=== PATIENT | male | born 1950 | race Caucasian/White ===

== ENCOUNTER 2018-10-07 14:53 | Outpatient (CLI) | payer MEDICARE, OTHER ==
--- NOTE | 2018-10-07 18:03 | MRI ---
MRI OF LUMBAR SPINE 10/07/18 COMPARISON: None. HISTORY: Neurogenic claudication, chronic low back pain radiating down bilateral lower extremities. TECHNIQUE: Multiplanar and multisequence MR imaging of the lumbar spine is obtained without contrast. FINDINGS: The sagittal STIR imaging demonstrates no focal area of osseous marrow edema. There is no significant anterolisthesis or retrolisthesis seen within the lumbar spine. Assuming five lumbar type vertebral bodies, the conus medullaris terminates at T12-L1. T12-L1: There is disc space narrowing and mild bilateral facet hypertrophy with no significant centra l canal or neural foraminal stenosis. L1-2: Mild bilateral facet hypertrophy. There is disc space narrowing and disc desiccation with no si gnificant central canal or neural foraminal stenosis. L2-3: Disc space narrowing, degenerative end plate change and mild disc bulge. Bilateral facet hypert rophy, left greater than right. There is a left foraminal disc protrusion. There is mild left neural foraminal stenosis. No significant central canal or right neural foraminal stenosis. L3-4: There is disc space narrowing and disc desiccation with anterior osteophyte formation. There is bilateral facet hypertrophy. There is severe central canal stenosis on the basis of disc bulge and b ilateral prominent facet hypertrophy. There is a central/right paracentral disc extrusion with inferi or migration. Extruded disc measures 9 mm craniocaudal dimension and 7 mm AP dimension with prominent right lateral recess stenosis. L4-5: Disc space narrowing, degenerative end plate change, anterior osteophyte formation, disc bulge, and right paracentral disc herniation present. The patient appears status post right hemilaminectomy . Moderate central canal stenosis noted with severe right lateral recess stenosis. Moderate right and mild left neural foraminal stenosis. L5-S1: Disc space narrowing, disc desiccation and disc bulge. Bilateral facet hypertrophy, left great er than right. Severe left and mild right neural foraminal stenosis. Moderate left lateral recess peter nosis noted with small left paracentral disc protrusion. Imaged retroperitoneal structures demonstrate no acute findings. There is a round structure in the ri ght lower quadrant which may represent a renal transplant or a pelvic kidney. No kidney is seen in th e right renal fossa. The left kidney is atrophic. IMPRESSION: Prominent multilevel degenerative change noted within the lumbar spine, particularly at the L3-4 and L4-5 levels as detailed above. POS: [facility]
== END 2018-10-07 14:54 | disposition home or self-care (01) ==
LOC: SCSMRI 14:53
PROVIDERS: ATTEND Internal Medicine
DX: M48.062 Spinal stenosis, lumbar region with neurogenic claudication (principal); M47.816 Spondylosis without myelopathy or radiculopathy, lumbar region
CPT/HCPCS: 72148

== ENCOUNTER 2018-10-30 08:10 | Day surgery (SDC) | payer MEDICARE, OTHER ==
[2018-10-29 08:47] VITALS: BMI 29.7
--- NOTE | 2018-10-30 00:16 | HP ---
HISTORY OF PRESENT ILLNESS: Mr. Manrique is a very pleasant 68-year-old man with a chronic history of back trouble that had an initial surgery in 1980 for a similar problem, but over the last 6 to 8 months, he has started to experience profound neurogenic claudication symptoms that are altering his day-to-day life. He has had injections in the distant past and recently tried physical therapy without much success. He has an MRI from [place] that reveals profound stenosis at L3-L4 secondary to spondylosis as well as the disk protrusion which would well explain his symptoms. PAST MEDICAL HISTORY: Significant for hypercholesterolemia, renal disease, history of cancer, hypertension, coronary artery disease, and gout. PAST SURGICAL HISTORY: Laminectomy, unspecified neck surgery, cholecystectomy, and kidney transplant. ALLERGIES: TO PENICILLIN. PHYSICAL EXAMINATION: GENERAL: The patient is alert and oriented x3. MUSCULOSKELETAL: Gait is significantly antalgic. Lower extremities motor exam is normal. ASSESSMENT: Lumbar stenosis with neurogenic claudication. PLAN: Dr. Hayes met with the patient, reviewed imaging, and advocated for an L3-L4 decompression. He explained the risks, benefits, and alternatives to the procedure. The patient expressed understanding and elected to move forward with surgery as discussed. Job ID: [id number]
[~2018-10-30 08:10] MED LIST: Dexamethasone 20 MG/5 ML VIAL ONE; Glycopyrrolate 0.2 MG/ML 5 ML SYRINGE ONE; Lidocaine 1% PF 5 ML VIAL ONE; Ondansetron PF 4 MG/2 ML Vial ONE; PROPOFOL 200 MG/20 ML VIAL ONE; ePHEDrine/0.9% NaCl/PF SYRINGE 50 mg/10 ml ONE
[2018-10-30 09:51] LABS: #Eosinphils 0.1 thou/uL (0.0-0.7); #Lymphocytes 0.9 thou/uL (1.20-3.40); #Monocytes 0.7 thou/uL (0.11-0.59); #Neutrophils 7.9 thou/uL (1.40-6.50); %Basophils 0.3 % (0.0-1.0); %Eosinophils 1.1 % (0.0-10.0); %Lymphocytes 9.7 % (21.0-51.0); %Neutrophils 81.9 % (42.0-75.0); Hemoglobin 13.5 g/dL (14.0-18.0); Mean Corpuscular HGB CONC 33.1 g/dL (32.0-36.0); Mean Corpuscular Hemoglobin 31.1 pg (27.0-31.0); Mean Corpuscular Volume 93.9 fL (78.0-98.0); Mean Platelet Volume 7.9 fL (7.4-10.4); RBC Distribution Width 11.9 % (11.5-14.5); Red Blood Cell (RBC) Count 4.35 mill/uL (4.70-6.10); White Blood Cell (WBC) Count 9.6 thou/uL (4.8-10.8)
[2018-10-30 09:56] LABS: Platelet Count 122 thou/uL (130-400)
[2018-10-30] MEDS ORDERED: CEFAZOLIN 2 GM/50 ML BAG ONE (09:58)
[2018-10-30 10:22] LABS: Chloride 108 mmol/L (98-107)
[2018-10-30 10:23] LABS: Calcium 9.3 mg/dL (7.8-10.44); Glucose 109 mg/dL (80-115); Potassium 3.5 mmol/L (3.5-5.1); Sodium 140 mmol/L (136-145)
[2018-10-30 10:25] LABS: Anion Gap 14 mmol/L (10-20); Carbon Dioxide 22 mmol/L (23-31)
[2018-10-30 10:27] LABS: Calc. Creatinine Clearance 60 mL/min (70-130); Estimated GFR-MDRD 48
[2018-10-30 10:28] LABS: BUN (Urea Nitrogen) 21 mg/dL (8.4-25.7)
[2018-10-30] MEDS ORDERED: Bupivacaine HCl 0.5%/Epinephrine 1:200,000/PF 30 ml Vial ONE (11:34)
[2018-10-30] MEDS ORDERED: Thrombin 5000 UNITS/5 ML VIAL ONE (11:34)
[2018-10-30] MEDS ORDERED: Clindamycin/D5W 900 mg/50 ml Premix Bag ONE (11:41)
[2018-10-30] MEDS ORDERED: Levofloxacin 500 mg/D5W 100 ml Premix Bag ONE (11:41)
[2018-10-30] MEDS ORDERED: Fentanyl 100 MCG/2 ML VIAL ONE (11:43)
[2018-10-30] MEDS ORDERED: Tamsulosin HCl 0.4 MG CAP ONE (13:43)
[2018-10-30] MEDS ORDERED: HYDROcodone/Acetaminophen 5/325 mg Tablet ONE (14:46)
--- NOTE | 2018-11-04 09:18 | OP ---
DATE OF PROCEDURE: 10/30/2018 CAPPING MACHINE OPERATOR: Bobby Hernandez PA-C INDICATION: Lumbar stenosis and neurogenic claudication. PROCEDURES PERFORMED: L3-L4 lumbar decompression. ANESTHESIA: General. TECHNIQUE: The patient was brought into the operating room and placed under general anesthesia. He was flipped from the supine to prone position on the operating room table. A linear incision was planned at the L3-L4 segment. After prepping and draping and after a preoperative pause, the incision was created. The soft tissues were swept away from midline. A self-retaining retractor was placed. After confirming the appropriate level, C-arm fluoroscopy, an Adson rongeur, as well as a high-speed cutting drill bit, as well as 2, 3, and 4 mm Kerrisons were used to perform a laminectomy at the L3-L4 interspace. After decompressing this area, the wound was irrigated. Hemostasis was maintained throughout. The wound was then closed in anatomic layers and a pressure dressing was applied. There were no known procedural complications. Job ID: [id number]
== END 2018-10-30 15:48 | disposition home or self-care (01) ==
LOC: SDC 08:10
PROVIDERS: ATTEND Neurological Surgery
PROC: 01NB0ZZ Release Lumbar Nerve, Open Approach (ICD-10-PCS; principal; 2018-10-30)
DX: M48.062 Spinal stenosis, lumbar region with neurogenic claudication (principal); M47.816 Spondylosis without myelopathy or radiculopathy, lumbar region; M51.26 Other intervertebral disc displacement, lumbar region; E78.00 Pure hypercholesterolemia, unspecified; I10 Essential (primary) hypertension; I25.10 Atherosclerotic heart disease of native coronary artery without angina pectoris; M10.9 Gout, unspecified; Z79.82 Long term (current) use of aspirin; Z79.899 Other long term (current) drug therapy; Z88.0 Allergy status to penicillin; Z94.0 Kidney transplant status; Z98.890 Other specified postprocedural states
CPT/HCPCS: 36415; 76001; 80048; 85025; J0670; J1100; J1956; J2001; J2405; J2704; J3010; J3490

== ENCOUNTER 2019-02-28 14:44 | Inpatient (IN) | payer MEDICARE, OTHER ==
--- NOTE | 2019-02-28 15:40 | PDOC.FPRHP ---
- History of Present Illness Chief Complaint: abd pain History of Present Illness: 68 yo M with PMH of acute pancreatitis transfer from [place] for epigastric pain. Started at 2-3AM associated w/ dry heaving. No radiation, has had similar pain before when had pancreatitis a few years ago. AT that time had GB removed. Denies occasional alcohol use with last drink 2 beers 2 days ago. No diarrhea, hematochezia. Has a hx of renal nephrectomy with transplant due to renal carcinoma. Denies dysuria, flank pain, hematuria. In ED s/p 2L boluses and fentanyl. - Allergies/Adverse Reactions Allergies Allergy/AdvReac Type Severity Reaction Status Date / Time Penicillins Allergy Hives Verified 10/29/18 08:47 - Home Medications Medication Instructions Recorded Confirmed Type Rosuvastatin [Crestor] 10 mg PO QAM 06/19/16 10/29/18 History Aspirin [Ecotrin] 81 mg PO DAILY 04/23/17 10/29/18 History Famotidine 40 mg PO QAM 04/23/17 10/29/18 History Finasteride 5 mg PO QAM 04/23/17 10/29/18 History Mycophenolate [Cellcept] 500 mg PO BID 04/23/17 10/29/18 History Sulfamethoxazole/Trimethoprim 1 tab PO ASDIR 04/23/17 10/29/18 History [Bactrim DS] Carvedilol 12.5 mg PO BID 04/30/17 10/29/18 History Cholecalciferol [Vitamin D3] 1,000 unit PO DAILY 04/30/17 10/29/18 History Doxazosin Mesylate [Cardura] 4 mg PO HS 04/30/17 10/29/18 History Percival-3 Fatty Acids/Fish Oil 1,000 mg PO BID 04/30/17 10/29/18 History [Percival 3 1,000 mg Softgel] Tacrolimus [Prograf] 0.5 mg PO QPM 04/30/17 10/29/18 History Ubidecarenone/Vit E Acet [Co Q-10 1 each PO BID 04/30/17 10/29/18 History 100 mg Softgel] Itraconazole 100 mg PO BID 10/29/18 10/29/18 History Pantoprazole Sodium 40 mg PO QAM 10/29/18 10/29/18 History - History PMHx: Renal malignancy, aortic dissection s/p repair, HLD, HTN PSHx: Surgical history of cholecystectomy, laparoscopic, Date of surgery 2011, BILAT SHOULDER- rotator cuff. Surgical history of nephrectomy, on the right, Date of surgery 2003. Neck surgery . Cardiac Ablation. Bilateral cataract. Repair of dissecting aortic aneurism. Kidney transplant and aortic dissection repair in 2017. Back surgery . 02/28/19. FHx: n/c Social: denies tobacco & drug use, occasional etoh - Review of Systems General: reports: weight/appetite/sleep changes. denies: fever/chills Eyes: denies: vision changes ENT: denies: nasal congestion, rhinorrhea Respiratory: denies: cough, congestion, shortness of breath Cardiovascular: denies: chest pain, edema Gastrointestinal: reports: nausea, vomiting, abdominal pain. denies: GI bleeding Genitourinary: denies: dysuria, discharge Skin: denies: rashes, lesions Neurological: reports: weakness. denies: syncope, seizure - Vital signs BP:154/89, Pulse: 61, Resp: 23, O2 sat: 93 on 2L Oxygen, Time: 02/28/2019 16:32. - Physical Exam Constitutional: awake, alert and oriented HEENT: normocephalic and atraumatic, PERRLA, EOMI -HEENT: dry mucosal membranes Neck: FROM, trachea midline Heart: RRR, normal S1/S2 Lungs: CTAB, no respiratory distress, good air movement -Abdomen: hypoactive BS, tender to palpation diffusely, guarding Musculoskeletal: ROM grossly normal Neurological: no focal deficit, CN II-XII intact Heme/Lymphatic: no unusual bruising or bleeding, no purpura Psychiatric: good judgment and insight, intact recent and remote memory FMR H&P: Results - EKG Interpretation EKG: NSR - Radiology Interpretation Chest x-ray Status: image reviewed by me, report reviewed by me Additional comment: suboptimal elevation of left lung base CT scan - abdomen Status: report reviewed by me Additional comment: inflammation of proximal pancreas & duodenum FMR H&P: A/P - Problem List (1) Acute pancreatitis Current Visit: Yes Status: Acute Code(s): K85.90 - ACUTE PANCREATITIS WITHOUT NECROSIS OR INFECTION, UNSP - Plan #acute pancreatitis -Lipase in 500s, hx of pancreatitis, fitting clinical picture -s/p 2L bolus, will bolus 500cc, then start on 200cc/hr of LR -morphine q4hr for pain control with q2hr for breakthrough -RUQ US to check for CBD dilation -LDH to risk stratify with Norma's/Sun'Aq -FLP in AM -strict NPO for now, will touch base with transplant doctor about continuing to hold meds -admit inpatient/medical #HTN -PRN hydralazine #DEBRAD - aware, continue to hold meds since npo Hx of renal CA s/p transplant -hold meds for now dvt ppx: lovenox code: full dispo: >2 MN Discussed w/ Dr. Lemon FMR H&P: Upper Level - Pertinent history 68 yo male presents with 1 day history of nausea and abdominal pain. Patient reports drinking 2 beers for lunch yesterday and then waking up this morning with intense abdominal pain. Patient has been dry heaving during this time as well. He reports that 2 years ago he required cholecystectomy due to gallstone pancreatitis and this feels very similar to that. Patient was transfer from [place]. Physical Exam: General: Appears stated age. Mild pain and distress CV: RRR, no murmurs Respiratory: CTA-bilaterally Abdomen: Diffusely tender to palpation. Most significant in Epigastrium. Unable to tolerate deep palpation Extremities: No edema or erythema. - Plan Date/Time: 02/28/19 1540 I, Noel Borja MD, have evaluated this patient and agree with findings/ plan as outlined by internal communications specialist resident. Pertinent changes/additions are listed here. 1. Acute Pancreatitis - Lipase 527 - WBC 21.2 - LDH pending to complete [place]'s score, if negative Score of 2 and 1% Mortality. If positive score would be 3 and 15%. - FLP orderd - NPO will advance as tolerated - IVF - Pain Control # History of Kidney Transplant - Consider contacting transplant specialist, Dr. Hatch at [facility] in [place] - Consider Nephrology consultation - Continue home medications - Can consider changing medications to IVP if possible # HTN - Continue home meds - Provide PRN if BP elevated and unable to tolerate medications # HLD - FLP ordered - Continue home meds
[2019-02-28] MEDS ORDERED: Fentanyl 100 MCG/2 ML VIAL ONE (16:29)
[2019-02-28] MEDS ORDERED: Lactated Ringer's 500 ML IV SCH (17:15)
[2019-02-28 17:53] LABS: CKMB 1.9 ng/mL (0-6.6)
[2019-02-28 18:48] LABS: Cardiac Risk 2.9 (Less than 4.5)
[2019-02-28] MEDS: Morphine 2 MG/ML SYRINGE SLOW IVP PRN (19:20)
[2019-02-28] MEDS: Ondansetron PF 4 MG/2 ML Vial IVP PRN (19:21)
[2019-02-28] MEDS: Lactated Ringer's 1,000 ML IV SCH ×2 (19:55→22:02)
[2019-02-28 21:03] VITALS: BMI 30.7
[2019-02-28 21:54] LABS: CKMB 1.8 ng/mL (0-6.6)
[2019-02-28] MEDS: Morphine 4 MG/ML VIAL SLOW IVP PRN (22:00)
[2019-03-01] MEDS: Lactated Ringer's 1,000 ML IV SCH ×6 (01:29→21:07)
[2019-03-01] MEDS: Morphine 4 MG/ML VIAL SLOW IVP PRN ×5 (01:29→19:55)
[2019-03-01] MEDS: Ondansetron PF 4 MG/2 ML Vial IVP PRN ×2 (01:29→08:30)
--- NOTE | 2019-03-01 06:49 | PDOC.FM ---
- Subjective Subjective: Improved abd pain5/10, yesterdy was 10/10. No nausea, no emesis. - Objective MAR Reviewed: Yes Vital Signs & Weight: Vital Signs (12 hours) Temp Pulse Resp BP Pulse Ox 03/01/19 04:05 98.7 F 79 16 162/84 H 94 L 03/01/19 00:31 97.6 F 73 18 170/92 H 96 02/28/19 19:57 97 02/28/19 19:55 97.6 F 65 20 178/92 H 97 02/28/19 19:32 94 98 Weight Weight 89.018 kg I&O: 02/27/19 02/28/19 03/01/19 06:59 06:59 06:59 Intake Total 3000 Output Total 2700 Balance 300 Result Diagrams: 03/01/19 05:38 03/01/19 05:38 Phys Exam - Physical Examination mild distress from abd pain HEENT: moist MMs Neck: full ROM Cardiovascular: RRR, no significant murmur Gastrointestinal: soft tender in epigastric and LUQ RUQ areas Musculoskeletal: no edema, edema present Neurological: non-focal Dx/Plan (1) Acute pancreatitis Code(s): K85.90 - ACUTE PANCREATITIS WITHOUT NECROSIS OR INFECTION, UNSP Status: Acute (2) S/P kidney transplant Code(s): Z94.0 - KIDNEY TRANSPLANT STATUS Status: Chronic (3) HTN (hypertension) Code(s): I10 - ESSENTIAL (PRIMARY) HYPERTENSION Status: Chronic (4) HLD (hyperlipidemia) Code(s): E78.5 - HYPERLIPIDEMIA, UNSPECIFIED Status: Chronic - Plan Plan: #Acute pancreatitis -Lipase in 500s, hx of pancreatitis, fitting clinical picture -morphine q4hr for pain control with q2hr for breakthrough -strict NPO for now, will touch base with transplant doctor about continuing to hold meds today -UO: 2.7L, adequately resuscitated, but due to pain continue at 250cc/hr -RUQ US to check for CBD dilation #HTN -PRN labetalol #HLD -MD aware, continue to hold meds since npo #Hx of renal CA s/p transplant -hold meds for now, will contact renal transplant doctor today dvt ppx: lovenox code: full dispo: >2 MN Discussed w/ Dr. Lemon
[2019-03-01 06:53] LABS: Band 8 % (5-11); Hemoglobin 14.7 g/dL (14.0-18.0); Lymphocytes 5 % (21-51); MDiff Complete? YES; Mean Corpuscular HGB CONC 32.9 g/dL (32.0-36.0); Mean Corpuscular Hemoglobin 31.8 pg (27.0-31.0); Mean Corpuscular Volume 96.7 fL (78.0-98.0); Mean Platelet Volume 7.3 fL (7.4-10.4); Monocytes 7 % (0-10); Neutrophil 80 % (42-75); Platelet Count 133 thou/uL (130-400); Platelet Morphology Comment Appears Adequate; RBC Distribution Width 12.2 % (11.5-14.5); Red Blood Cell (RBC) Count 4.61 mill/uL (4.70-6.10); White Blood Cell (WBC) Count 18.1 thou/uL (4.8-10.8)
[2019-03-01 07:03] LABS: Anion Gap 13 mmol/L (10-20); BUN (Urea Nitrogen) 12 mg/dL (8.4-25.7); Calc. Creatinine Clearance 103 mL/min (70-130); Calcium 8.8 mg/dL (7.8-10.44); Carbon Dioxide 24 mmol/L (23-31); Chloride 99 mmol/L (98-107); Estimated GFR-MDRD 86; Glucose 120 mg/dL (80-115); Potassium 3.6 mmol/L (3.5-5.1); Sodium 132 mmol/L (136-145)
--- NOTE | 2019-03-01 07:48 | ULT ---
RIGHT UPPER QUADRANT ULTRASOUND: Date: 03/01/19 INDICATION: Abdominal pain. COMPARISON: CT abdomen and pelvis dated 02/28/19. INDICATION: History of pancreatitis, status post cholecystectomy. FINDINGS: Overlying bowel gas limits evaluation of the pancreas. Left hepatic lobe is also not well seen. The g allbladder is surgically absent. Common bile duct measures 4.8 mm. The right kidney is surgically abs ent. No drainable fluid collection is evident. IMPRESSION: 1. Limitations to exam. 2. Cholecystectomy. 3. No common bile duct dilatation. 4. Right nephrectomy. POS: [facility]
[2019-03-01] MEDS: Enoxaparin Sodium 40 MG/0.4 ML SYRINGE SC SCH (08:33)
[2019-03-01] MEDS ORDERED: Prevnar 13-Val Conj/PF 0.5 ML SYRINGE IM ONE (09:00)
[2019-03-01] MEDS: Morphine 2 MG/ML SYRINGE SLOW IVP PRN ×2 (09:00→18:32)
[2019-03-01] MEDS ORDERED: Labetalol HCl 100 MG/20 ML VIAL SLOW IVP PRN (09:21)
--- NOTE | 2019-03-01 12:43 | HP ---
CHIEF COMPLAINT: Epigastric pain. HISTORY OF PRESENT ILLNESS: I examined the patient. I discussed the case with Dr. Jackelin Alas and agree with her assessment and plan. Mr. Manrique is a 68-year-old white male patient who awoke at approximately 2-3 o'clock on the morning of admission with severe abdominal and epigastric pain. He went to the [facility] ER where he was noticed to have a lipase of 527, and a history and physical consistent with acute pancreatitis, at which he has a prior history. He was transported to our ER for higher level of care. PHYSICAL EXAMINATION: I examined the patient in the emergency room. On exam, his blood pressure was 150/80, his pulse rate was 80, respirations 18, not labored, O2 saturation was 93% on 2 L. GENERAL: When I saw the patient, he was very somnolent, but had received several dosages of intravenous pain medication. He was arousable and when aroused, was alert and oriented. EAR, NOSE, AND THROAT: His mucous membranes are dry. NECK: Supple. CARDIAC: PMI is in the 5th intercostal space. S4 gallop. No murmur or rub noted. Heart sounds are distant. LUNGS: Breath sounds are clear but diminished without rales, rhonchi, wheezes. He appears to be in no respiratory distress. ABDOMEN: Diffusely tender and tense. It is hard to get him to relax. He has a lot of voluntary guarding. Bowel sounds are diminished to absent. I cannot appreciate an enlarged liver or spleen. EXTREMITIES: Trace edema. NEUROLOGIC: No focal deficits. LABORATORY DATA: The only lab available to me at the time of this dictation was lipids. His triglycerides are 178, cholesterol 178, LDL 81, HDL 61. His tropes mildly elevated, but not spiking with highest level being 0.033. I am told his white count is elevated and his lipase is elevated. ASSESSMENT: 1. Acute pancreatitis. 2. History of renal transplant. 3. History of repaired aortic dissection. PLAN: The patient will be admitted. I recommend aggressive fluid resuscitation as well as pain control. I need to review his labs when they are available. Job ID: [id number]
--- NOTE | 2019-03-01 14:42 | PRG ---
DATE OF SERVICE: 03/01/2019 Mr. Manrique feels somewhat better this morning, although he is still having pretty significant epigastric pain. When I get him to relax, his abdomen is soft and flat. He does have significant epigastric tenderness. His right upper quadrant ultrasound did not reveal any common duct dilatation or retained stones. We will continue with aggressive fluid management as well as pain control. We will feed him when his pain is greatly diminished and he is no longer nauseated. Careful attention to electrolytes and urine output. Job ID: [id number]
[2019-03-02] MEDS: Lactated Ringer's 1,000 ML IV SCH ×6 (01:01→21:18)
[2019-03-02] MEDS: Ondansetron PF 4 MG/2 ML Vial IVP PRN (01:06)
[2019-03-02] MEDS: Morphine 4 MG/ML VIAL SLOW IVP PRN ×3 (01:06→12:54)
[2019-03-02 08:17] LABS: Hemoglobin 14.5 g/dL (14.0-18.0); Mean Corpuscular HGB CONC 32.5 g/dL (32.0-36.0); Mean Corpuscular Volume 95.5 fL (78.0-98.0); Mean Platelet Volume 7.8 fL (7.4-10.4); Platelet Count 124 thou/uL (130-400); Red Blood Cell (RBC) Count 4.67 mill/uL (4.70-6.10); White Blood Cell (WBC) Count 18.5 thou/uL (4.8-10.8)
[2019-03-02] MEDS: Enoxaparin Sodium 40 MG/0.4 ML SYRINGE SC SCH (08:23)
[2019-03-02] MEDS ORDERED: Hydrocortisone Sod Succ/PF 100 mg/2 ml Vial IVP ONE (08:23)
[2019-03-02 08:26] LABS: Anion Gap 14 mmol/L (10-20); BUN (Urea Nitrogen) 12 mg/dL (8.4-25.7); Calc. Creatinine Clearance 83 mL/min (70-130); Calcium 8.8 mg/dL (7.8-10.44); Carbon Dioxide 22 mmol/L (23-31); Chloride 98 mmol/L (98-107); Estimated GFR-MDRD 67; Glucose 113 mg/dL (80-115); Potassium 3.6 mmol/L (3.5-5.1); Sodium 130 mmol/L (136-145)
--- NOTE | 2019-03-02 08:28 | PDOC.FM ---
- Subjective Subjective: Pt with 3/10 abdominal pain. Still nauseous, but pain has improved. High BPs overnight, has been around baseline. Dec. urination. - Objective Vital Signs & Weight: Vital Signs (12 hours) Temp Pulse Resp BP Pulse Ox 03/02/19 08:03 97.7 F 86 20 163/73 H 93 L Weight Weight 89.018 kg I&O: 03/01/19 03/02/19 03/03/19 06:59 06:59 06:59 Intake Total 3000 3000 Output Total 2700 2000 Balance 300 1000 Result Diagrams: 03/02/19 07:23 03/02/19 07:23 Phys Exam - Physical Examination mild distress from abdominal pain HEENT: PERRLA, sclera anicteric Neck: full ROM Respiratory: no wheezing, clear to auscultation bilateral Cardiovascular: RRR, no significant murmur Gastrointestinal: soft epigastric tenderness to palpatikon Neurological: non-focal, moves all 4 limbs Psychiatric: normal affect, A&O x 3 Dx/Plan (1) Acute pancreatitis Code(s): K85.90 - ACUTE PANCREATITIS WITHOUT NECROSIS OR INFECTION, UNSP Status: Acute (2) S/P kidney transplant Code(s): Z94.0 - KIDNEY TRANSPLANT STATUS Status: Chronic (3) HTN (hypertension) Code(s): I10 - ESSENTIAL (PRIMARY) HYPERTENSION Status: Chronic (4) HLD (hyperlipidemia) Code(s): E78.5 - HYPERLIPIDEMIA, UNSPECIFIED Status: Chronic - Plan Plan: #Acute pancreatitis -Lipase in 500s, hx of pancreatitis, fitting clinical picture -fentanyl patch, morphine q4hr for pain control with q2hr for breakthrough -UO: 2.7L, adequately resuscitated, but due to pain continue at 250cc/hr -RUQ US w/ no CBD dilation #PETRA -With HTN and hematuria may be beginning of transplant rejetion -Restarting antirejection meds RASHIDA- communicated this w/ nurse -See recommendations below -Will keep in contact with Dr. Steel in regards to this #HTN -PRN labetalol #HLD - aware, continue to hold meds since npo #Hx of renal CA s/p transplant -Discussed with Dr. Steel giving SL program, we do not have, we will try PO and obtain prograf level tomorrow -Hydrocortisone 50mg IV q8hr -Hold off on cellcept until can tolerate PO dvt ppx: lovenox code: full dispo: >2 MN Discussed w/ Sab
[2019-03-02 08:39] LABS: Band 5 % (5-11); Lymphocytes 5 % (21-51); MDiff Complete? YES; Monocytes 3 % (0-10); Neutrophil 76 % (42-75); Platelet Morphology Comment Appears Decreased; RBC Morphology Normal; Reactive Lymphocytes 11 % (0-10)
[2019-03-02] MEDS: Tacrolimus 0.5 MG CAP PO SCH (08:56)
[2019-03-02] MEDS: Pantoprazole 40 MG VIAL IVP SCH (09:00)
[2019-03-02] MEDS ORDERED: Mycophenolate 250 MG CAP PO SCH (09:00)
[2019-03-02] MEDS ORDERED: Lactated Ringer's 500 ML IV SCH (10:00)
[2019-03-02 13:13] LABS: Bilirubin Negative (Negative); Blood, Urine Trace (Negative); Clarity CLEAR (Clear); Glucose, Urine (Dipstick) Negative (Negative); Leukocyte Negative (Negative); Nitrite Negative (Negative); Protein, Urine (Dipstick) Trace mg/dL (Neg-Trace); Specific Gravity, Urine 1.005 (1.002-1.036)
[2019-03-02 13:15] LABS: Bacteria/HPF None Seen HPF (None Seen); Hyaline Casts/LPF 0-3 HYALINE CAST LPF (0-3 Hyaline); Pathc Cast-AUWi Flag 0.13 (0-2.49); RBC/HPF 0-3 HPF (0-3); Squamous Epithelial 0-3 HPF (0-3); WBC/HPF 0-3 HPF (0-3)
[2019-03-02] MEDS: Hydrocortisone Sod Succ/PF 100 mg/2 ml Vial IVP SCH ×2 (14:32→21:17)
--- NOTE | 2019-03-02 15:30 | PRG ---
DATE OF SERVICE: 03/02/2019 Our resident was able to consult with Mr. Manrique's transplant physician. We have restarted his anti-rejection medications. Clinically, he looks and feels better. He states that his pain is much better. His abdomen is much softer, flatter, and there is no guarding today. We will continue with his anti-rejection medications as well as slowly and cautiously begin clear liquids and low-fat diet. Job ID: [id number]
[2019-03-03] MEDS: Lactated Ringer's 1,000 ML IV SCH ×2 (01:58→04:45)
[2019-03-03] MEDS: Hydrocortisone Sod Succ/PF 100 mg/2 ml Vial IVP SCH (05:44)
--- NOTE | 2019-03-03 06:37 | PDOC.FM ---
- Subjective Subjective: Patient says abd pain gone, ready to eat. Tolerated 50% of clear liquid diet. Refused labs. Passing gas, walking around. - Objective MAR Reviewed: Yes Vital Signs & Weight: Vital Signs (12 hours) Temp Pulse Resp BP Pulse Ox 03/02/19 20:00 93 L 03/02/19 19:38 98.1 F 82 18 159/83 H 93 L Weight Weight 89.018 kg I&O: 03/01/19 03/02/19 03/03/19 06:59 06:59 06:59 Intake Total 3000 3000 3240 Output Total 2700 2000 1500 Balance 300 1000 1740 Result Diagrams: 03/02/19 07:23 03/02/19 07:23 Phys Exam - Physical Examination Constitutional: NAD HEENT: PERRLA, moist MMs Cardiovascular: RRR, no significant murmur Gastrointestinal: soft, non-tender, no distention Neurological: non-focal, moves all 4 limbs Psychiatric: normal affect, A&O x 3 Skin: cap refill <2 seconds Dx/Plan (1) Acute pancreatitis Code(s): K85.90 - ACUTE PANCREATITIS WITHOUT NECROSIS OR INFECTION, UNSP Status: Acute (2) S/P kidney transplant Code(s): Z94.0 - KIDNEY TRANSPLANT STATUS Status: Chronic (3) HTN (hypertension) Code(s): I10 - ESSENTIAL (PRIMARY) HYPERTENSION Status: Chronic (4) HLD (hyperlipidemia) Code(s): E78.5 - HYPERLIPIDEMIA, UNSPECIFIED Status: Chronic - Plan Plan: #Acute pancreatitis -Lipase in 500s, hx of pancreatitis, fitting clinical picture -fentanyl patch, morphine q4hr for pain control with q2hr for breakthrough -UO: 1.7L yesterday -RUQ US w/ no CBD dilation -Lipase/amylase ratio <4, but likely triggered by alcoholic intake -Also consdier cellcept, since can be source of upsetting stomach/nausea -Patient hungry, will advance to low fat full liquid, d/c fentanyl and morphine , he has been morhpine free >15 hours -D/c fluids -If patient tolerates breakfast well, can go home #PETRA -With HTN and hematuria may be beginning of transplant rejetion -Restarting antirejection meds RASHIDA- communicated this w/ nurse -See recommendations below -Will keep in contact with Dr. Steel in regards to this #HTN -PRN labetalol #HLD -MD aware, continue to hold meds since npo #Hx of renal CA s/p transplant -Discussed with Dr. Steel giving SL program, we do not have, we will try PO and obtain prograf level tomorrow -Hydrocortisone 50mg IV q8hr -Hold off on cellcept until can tolerate PO dvt ppx: lovenox code: full dispo: >2 MN Discussed w/ Dr. Lemon
[2019-03-03] MEDS: Pantoprazole 40 MG VIAL IVP SCH (08:38)
[2019-03-03] MEDS: Tacrolimus 0.5 MG CAP PO SCH (08:38)
[2019-03-03] MEDS: Enoxaparin Sodium 40 MG/0.4 ML SYRINGE SC SCH (09:25)
[2019-03-03 11:44] VITALS: BP 178/90; TEMP 98.1
--- NOTE | 2019-03-03 12:25 | PRG ---
DATE OF SERVICE: Mr. Manrique looks and feels much better. He is tolerating a full liquid diet low-fat diet with no difficulty. We will give him lunch and if tolerated, discharge him later this afternoon. He is instructed to follow with his transplant doctor next week. Job ID: [id number]
--- NOTE | 2019-03-04 12:26 | DIS ---
DATE OF ADMISSION: 02/28/2019 DATE OF DISCHARGE: 03/03/2019 RESIDENT: Jackelin Alas, PGY-1. ADMITTING ATTENDING: Roma Gomez MD CONSULTS: Dr. Steel from [facility] in [place]. PROCEDURES: None. PRIMARY DIAGNOSES: 1. Acute pancreatitis, idiopathic, but probably secondary to alcohol. 2. History of unilateral nephrectomy with renal transplant. SECONDARY DIAGNOSES: 1. Hypertension. 2. Hyperlipidemia. 3. Obesity. DISCHARGE MEDICATIONS: All home medications were resumed including; 1. Crestor 10 mg p.o. daily. 2. Finasteride 5 mg p.o. q.a.m. 3. Bactrim DS one tab p.o. as directed. 4. Aspirin 81 mg p.o. daily. 5. CellCept 250 mg p.o. b.i.d. for one week. If can tolerate, then increase to more dosing of 500 mg p.o. b.i.d. 6. Famotidine 40 mg p.o. q.a.m. 7. Vitamin D3. 8. Cardura 4 mg p.o. at bedtime. 9. Prograf 0.5 mg p.o. daily. 10. Carvedilol 12.5 mg p.o. b.i.d. 11. [place] fish oil. 12. Pantoprazole 40 mg p.o. q.a.m. 13. Nifedipine ER 30 mg p.o. b.i.d. p.r.n. 14. CoQ enzyme 200 mg p.o. daily. 15. Prednisone 5 mg p.o. daily. DISCONTINUED MEDICATIONS: None. CHANGED MEDICATIONS: CellCept decreased to 250 mg p.o. b.i.d. If he is not experiencing GI symptoms, can increase to 500 mg p.o. b.i.d. HISTORY OF PRESENT ILLNESS/HOSPITAL COURSE: Mr. Aly Manrique is a 68-year-old male with a history of unilateral nephrectomy with renal transplant, presented to the ER for epigastric pain. Imaging; CT abdomen showed inflammation in the proximal pancreas and lab showed an elevated lipase. The patient was admitted for pain control of acute pancreatitis. He improved over the course of a couple of days with fluids and pain medication management. The patient has a history of gallstone pancreatitis requiring cholecystectomy. The patient endorsed he was drinking about 4-5 drinks a day 2 weeks prior to his hospitalization while he was on vacation. He denies any daily drinking otherwise. Workup was done for secondary cause of the pancreatitis. All the results returned are negative and it was likely thought that his pancreatitis was either due to alcohol or one of his immunosuppressant medications for his live donor kidney transplant. At one point, the patient did experience a rise in his creatinine and decreased urine output and so Dr. Steel, his renal transplant physician was consulted in regard to his immunosuppression management. It had been held due to patient's inability to tolerate anything p.o. for the 1st 48 hours. His medications were resumed, but due to possible GI upset, dosages were changed and they are listed above in medication. The patient was instructed and kept in communication throughout this whole stay. At the end of discharge, the patient was able to tolerate a full liquid diet and expressed readiness to go home. He was instructed to follow up at [facility] in one week to get the appropriate lab so that Dr. Steel will be able to continue monitoring his care. DISPOSITION: Stable. DISCHARGE INSTRUCTIONS: 1. Location: Home. 2. Diet: Heart healthy, low-fat, diabetic diet. 3. Activity: As tolerated. 4. Followup: a. Please follow up with Dr. Medina in 5-7 days. b. Please follow up with Dr. Steel at [facility] in [place] to get appropriate labs in one week. Job ID: [id number]
== END 2019-03-03 12:49 | disposition home or self-care (01) | DRG 439 ==
LOC: ERS 14:44 → 2NO 18:05 → T4-A 19:54
PROVIDERS: ADMIT Family Medicine; ATTEND Family Medicine
DX: K85.90 Acute pancreatitis without necrosis or infection, unspecified (principal); N17.9 Acute kidney failure, unspecified; T86.11 Kidney transplant rejection; E78.00 Pure hypercholesterolemia, unspecified; I10 Essential (primary) hypertension; E78.5 Hyperlipidemia, unspecified; Z85.528 Personal history of other malignant neoplasm of kidney; Y83.0 Surgical operation with transplant of whole organ as the cause of abnormal reaction of the patient, or of later complication, without mention of misadventure at the time of the procedure; Z79.82 Long term (current) use of aspirin; Z79.899 Other long term (current) drug therapy; Z90.5 Acquired absence of kidney; Z98.890 Other specified postprocedural states; Z90.49 Acquired absence of other specified parts of digestive tract; Z88.0 Allergy status to penicillin
CPT/HCPCS: 36415; 76705; 80048; 80061; 81003; 81015; 82150; 82553; 83615; 83690; 84145; 84484; 85007; 85027; 96361; 96374; C9113; J1650; J1720; J2270; J2405; J3010; J7507; J7517

== ENCOUNTER 2019-10-14 09:54 | Outpatient (CLI) | payer MEDICARE, OTHER ==
--- NOTE | 2019-10-14 12:14 | MRI ---
MR the lumbar spine with and without contrast INDICATION: Left leg numbness and right leg pain COMPARISON: September 29, 2018 TECHNIQUE: Multiplanar multisequence MR images were obtained of lumbar spine with and without IV cont rast. Contrast: 9 cc of MultiHance. FINDINGS: Bone marrow: There is a suspected herniated Schmorl's node involving the superior aspect of L5. There is mild Modic endplate degenerative changes seen at L4-5, L2-3 and L1-2. Distal spinal cord and conus: Normal. Conus is seen to terminate at the L1 level. Visualized retroperitoneum and paraspinal soft tissues: Normal. No lymphadenopathy demonstrated. Vertebral levels: L5-S1: There is a broad-based bulge, asymmetric to the left, with facet joint degenerative change is stable to the prior exam. The broad-based bulge does moderately narrow the left lateral recess. This is stable. The loss of disc space height in addition to the disc bulge and facet hypertrophy ind uces severe left and moderate right neural foraminal narrowing which is stable. L4-5: There is a broad-based disc osteophyte complex with facet hypertrophy and loss of disc space he ight inducing moderate to severe right and mild left neural foraminal narrowing which is stable to the prior exam. The broad-based bulge and right paracentral disc protrusion induces stable moderate c entral canal narrowing with severe right lateral recess narrowing. The right hemilaminectomy changes at L4 are stable. L3-4: There is postprocedural change of a bilateral laminotomy at L3 which is new from the prior exam . There is an inferior projecting central disc extrusion measuring 1.7 x 1.2 cm in its greatest craniocaudad and mediolateral dimensions respectively. The disc extrusion in addition to facet hypert rophy induces mild to moderate central canal narrowing. The degree of central canal narrowing has improved from the prior exam. Loss of disc space height in addition to facet degenerative change at t his level induces moderate bilateral neural foraminal narrowing, left greater than right. This is stable to the prior exam. L2-3: There is a broad-based disc bulge with facet hypertrophy inducing mild central canal narrowing with moderate left and mild to moderate right neural foraminal narrowing which is stable to the prior exam. There is a new left inferior paracentral disc extrusion at L2-3 causing mild ventral effa cement of the subarachnoid space with mild narrowing of the left lateral recess. This is best seen on image 11 of series 3 and image 23 of series 6. The extrusion measures approximately 6 x 6 mm. L1-L2: There is a broad-based bulge with facet hypertrophy but no appreciable central canal or neural foraminal narrowing. T12-L1: No appreciable central canal or neuroforaminal narrowing. Postcontrast series: No abnormal enhancement demonstrated. IMPRESSION: 1. Postprocedural change most consistent with a bilateral laminotomy at L3. Findings concerning for r edevelopment of a large central disc extrusion at L3-4 measuring 1.7 x 1.2 cm and inducing mild to moderate central canal narrowing. The extent of the central canal narrowing is slightly improved from the prior exam. There is stable moderate bilateral neural foraminal narrowing at L3-4. 2. Stable severe left and moderate right neural foraminal narrowing at L5-S1. There is stable moderat e left lateral recess narrowing at L5-S1. 3. Stable moderate to severe right and mild left neural foraminal narrowing at L4-5. There is stable moderate central canal narrowing and severe right lateral recess narrowing at L4-5. 4. Interval development of a new small inferior projecting paracentral disc extrusion at L2-3 causing mild ventral effacement of the subarachnoid space and mild narrowing of the left lateral recess. There is stable moderate right and moderate left neural foraminal narrowing at L2-3.
[2019-10-14] MEDS ORDERED: Magnevist 469MG/ML 20 ML VIAL ONE (15:08)
== END 2019-10-14 09:55 | disposition home or self-care (01) ==
LOC: MRI 09:54
PROVIDERS: ATTEND Neurological Surgery
DX: M54.16 Radiculopathy, lumbar region (principal); M48.07 Spinal stenosis, lumbosacral region; Z98.890 Other specified postprocedural states
CPT/HCPCS: 72158; 82565; A9579

== ENCOUNTER 2019-11-16 06:14 | Outpatient (CLI) | payer MEDICARE, OTHER ==
[2019-11-16 12:12] LABS: Hemoglobin 14.1 g/dL (14.0-18.0); Mean Corpuscular HGB CONC 32.9 g/dL (32.0-36.0); Mean Corpuscular Volume 94.3 fL (78.0-98.0); Mean Platelet Volume 8.2 fL (7.4-10.4); Platelet Count 167 thou/uL (130-400); RBC Distribution Width 12.3 % (11.5-14.5); Red Blood Cell (RBC) Count 4.54 mill/uL (4.70-6.10); White Blood Cell (WBC) Count 15.8 thou/uL (4.8-10.8)
[2019-11-16 12:49] LABS: Anion Gap 15 mmol/L (10-20); BUN (Urea Nitrogen) 22 mg/dL (8.4-25.7); Calc. Creatinine Clearance 0 mL/min (70-130); Calcium 9.4 mg/dL (7.8-10.44); Carbon Dioxide 25 mmol/L (23-31); Chloride 107 mmol/L (98-107); Estimated GFR-MDRD 50; Glucose 131 mg/dL (80-115); Potassium 3.7 mmol/L (3.5-5.1); Sodium 143 mmol/L (136-145)
--- NOTE | 2019-11-19 15:15 | EKG ---
Test Reason : Blood Pressure : / mmHG Vent. Rate : 063 BPM Atrial Rate : 063 BPM P-R Int : 262 ms QRS Dur : 136 ms QT Int : 448 ms P-R-T Axes : 075 -86 037 degrees QTc Int : 458 ms Sinus rhythm with marked sinus arrhythmia with 1st degree A-V block Left axis deviation Right bundle branch block Anterior infarct (cited on or before 30-APR-2017) Abnormal ECG When compared with ECG of 30-APR-2017 11:49, Right bundle branch block has replaced Non-specific intra-ventricular conduction block Questionable change in initial forces of Anterior leads Confirmed by DR. Zachary CESPEDES ([id number]) on 11/19/2019 3:15:09 PM Referred By: ALIS Confirmed By:DR. Zachary CESPEDES
== END 2019-11-16 06:15 | disposition home or self-care (01) ==
LOC: LABBT 06:14
PROVIDERS: ATTEND Neurological Surgery
DX: Z01.818 Encounter for other preprocedural examination (principal); M54.16 Radiculopathy, lumbar region
CPT/HCPCS: 80048; 85027; 93005; 93010

== ENCOUNTER → 2019-11-26 | Day surgery (SDC) | payer MEDICARE, OTHER ==
[2019-11-16 09:45] VITALS: BMI 31.3
--- NOTE | 2019-11-25 12:59 | HP ---
HISTORY OF PRESENT ILLNESS: Mr. Manrique is a very pleasant 69-year-old man, who is known to us for prior lumbar decompression that returns now with unfortunately recurrent pain that best fits a right L5 fashion with some components of anterior thigh pain. This is exclusively on the right. His pain began in March and then improved, but unfortunately has had further progression since July where he cleaned out his mother's house after her passing. He reports pain is worse now than it ever has been. It is amplified with walking, standing, and prohibits him at times from getting up out of bed. He takes prednisone and gabapentin in an attempt to alleviate it, although with minimal success. We have a new MRI scan from [place] that reveals a large right-sided disk herniation at L3-L4 as well as a smaller disk at L4-L5 on the right. Both of these appear to be the definitive cause of his symptoms. He hopes to move forward with treating this surgically. PAST MEDICAL HISTORY: Hypercholesterolemia, renal disease, history of cancer, hypertension, coronary arterial disease, and gout. PAST SURGICAL HISTORY: Lumbar laminectomy, unspecified neck surgery, cholecystectomy, kidney transplant. ALLERGIES: PENICILLIN. PHYSICAL EXAMINATION: The patient is alert and oriented x3. Gait is profoundly antalgic. Lower extremity exam is limited given his degree of pain. ASSESSMENT: Lumbar disk herniation and stenosis. PLAN: Dr. Hayes met with the patient, reviewed imaging, advocated for reoperation, right L3-L4 diskectomy and decompression. He explained to the patient the risks, benefits, and alternatives to the procedure. The patient expressed understanding and elected to move forward with surgery as discussed. I do believe the patient is mentally competent and capable of making medical decisions for himself. We will move forward with surgery as planned. Job ID: [id number]
[~2019-11-26] MED LIST changes: +Acetaminophen/Codeine 30-300mg Tablet ONE; +Bupivacaine PF 0.5% 30 ML VIAL ONE; +Clindamycin/D5W 900 mg/50 ml Premix Bag ONE; +EPINEPHrine 1 MG/ML AMP ONE; +Fentanyl 100 MCG/2 ML VIAL ONE; +Fentanyl 250 MCG/5 ML VIAL ONE; -Glycopyrrolate 0.2 MG/ML 5 ML SYRINGE ONE; +HYDROmorphone 0.5 MG/0.5 ML SYRINGE ONE; +Levofloxacin 500 mg/D5W 100 ml Premix Bag ONE; -Lidocaine 1% PF 5 ML VIAL ONE; +Midazolam HCl 2 mg/2 ml Vial ONE; +Morphine 2 MG/ML SYRINGE ONE; +Morphine 4 MG/ML VIAL ONE; +PHENYLEPHRINE-NS 100 MCG/ML 10 ML SYRINGE ONE; +Rocuronium Bromide 10 MG/ML (10ML VIAL) ONE; +SUGAMMADEX SODIUM 200 MG/2 ML VIAL ONE; +Tamsulosin HCl 0.4 MG CAP ONE; +Thrombin 5000 UNITS/5 ML VIAL ONE
--- NOTE | 2019-11-26 12:27 | OP ---
DATE OF PROCEDURE: 11/26/2019 TUB CHUCKER: Bobby Hernandez PA-C INDICATION: Pain. DIAGNOSIS: Lumbar radiculopathy. PROCEDURES PERFORMED: Reoperation of right L3 and right L4 decompression. ANESTHESIA: General. DESCRIPTION OF PROCEDURE: The patient was brought into the operating room and placed under general anesthesia. He was flipped from the supine to prone position on the operating room table. A linear incision was prepped and draped to the level of the prior incision. After an appropriate preoperative pause, the incision was created. The soft tissues were swept away from midline. After dissecting through a significant degree of scar and localizing the appropriate level with C-arm fluoroscopy, high-speed cutting drill bit as well as 2, 3, and 4 mm Kerrisons were used to complete the laminectomy at L3 and L4 and that was extended laterally to encompass the medial half of the facet joint. The exiting L3 nerve root was identified and decompressed. The descending and exiting L4 nerve roots were decompressed via foraminotomy and by removing disk material that had inferiorly migrated from L3 along the inferior portion of the pedicle of L4. The wound was then irrigated. Hemostasis was maintained throughout. The wound was then closed in anatomic layers and a pressure dressing was applied. There were no known procedural complications. Job ID: [id number]
== END ==
LOC: SDC 05:56
PROVIDERS: ATTEND Neurological Surgery
PROC: 0SB20ZZ Excision of Lumbar Vertebral Disc, Open Approach (ICD-10-PCS; principal; 2019-11-26)
PROC: 01NB0ZZ Release Lumbar Nerve, Open Approach (ICD-10-PCS; 2019-11-26)
DX: M51.16 Intervertebral disc disorders with radiculopathy, lumbar region (principal); M48.061 Spinal stenosis, lumbar region without neurogenic claudication; E78.00 Pure hypercholesterolemia, unspecified; I10 Essential (primary) hypertension; I25.10 Atherosclerotic heart disease of native coronary artery without angina pectoris; M10.9 Gout, unspecified; Z79.52 Long term (current) use of systemic steroids; Z79.82 Long term (current) use of aspirin; Z79.899 Other long term (current) drug therapy; Z88.0 Allergy status to penicillin; Z90.5 Acquired absence of kidney; Z94.0 Kidney transplant status; Z98.890 Other specified postprocedural states
CPT/HCPCS: 76000; J0171; J1100; J1170; J1956; J2250; J2270; J2405; J2704; J3010; J3490; S0020

== ENCOUNTER 2020-06-02 13:22 | Outpatient (CLI) | payer MEDICARE, OTHER ==
--- NOTE | 2020-06-02 13:48 | CT ---
CT HEAD WITHOUT IV CONTRAST COMPARISON: None HISTORY: Loss of vision in left eye for several minutes which occurred approximately 5 days ago. Amaurosis fu gax left eye. TECHNIQUE: Axial CT imaging at 5 mm intervals from vertex through skull base without contrast FINDINGS: There is mild cerebral volume loss. There is no evidence of an acute infarction, hemorrhage, mass eff ect, or midline shift. The ventricular system is normal in size, shape, and position. Visualized paranasal sinuses are clear. Osseous structures appear intact. IMPRESSION: 1. No acute intracranial abnormality demonstrated.
--- NOTE | 2020-06-02 15:17 | ULT ---
BILATERAL CAROTID DUPLEX ULTRASOUND: 06/02/20 HISTORY: Amaurosis fugax of left eye. Left eye visual disturbance. TECHNIQUE: Newton scale with color flow and spectral Doppler imaging of the extracranial carotid artery systems is performed bilaterally. FINDINGS: There is plaque formation on both sides. The peak systolic velocity in the right ICA measures 77 cm/s with an end diastolic velocity of 22 cm/ s and systolic ratio of 0.87. The peak systolic velocity in the left ICA measures 85 cm/s with an end diastolic velocity of 13 cm/s and systolic ratio of 0.81. Flow in both vertebral arteries remains antegrade. IMPRESSION: No evidence of hemodynamically significant stenosis in either ICA. POS: AH
== END 2020-06-02 13:23 | disposition home or self-care (01) ==
LOC: SCSCT 13:22
PROVIDERS: ATTEND Internal Medicine
DX: G45.3 Amaurosis fugax (principal)
CPT/HCPCS: 70450; 93880

== ENCOUNTER 2020-06-05 10:58 | Outpatient (CLI) | payer MEDICARE, OTHER ==
[2020-06-06 12:16] LABS: SARS-CoV-2 MS2 Positive; SARS-CoV-2 N Gene Negative; SARS-CoV-2 S Gene Negative; SARS-CoV-2 by NAA Not Detected (NotDetected); SARS-CoV-2 orf1ab Negative
== END 2020-06-05 10:59 | disposition home or self-care (01) ==
LOC: LABBT 10:58
PROVIDERS: ATTEND Internal Medicine Cardiovascular Disease
DX: Z01.812 Encounter for preprocedural laboratory examination (principal); Z11.59 Encounter for screening for other viral diseases; Z51.81 Encounter for therapeutic drug level monitoring; I48.91 Unspecified atrial fibrillation; Z79.01 Long term (current) use of anticoagulants
CPT/HCPCS: 87635; U0003

== ENCOUNTER 2020-06-09 09:16 | Day surgery (SDC) | payer MEDICARE, OTHER ==
[2020-06-05 12:27] VITALS: BMI 31.0
--- NOTE | 2020-06-09 13:07 | OP ---
DATE OF PROCEDURE: 06/09/2020 PROCEDURE PERFORMED: Injectable monitor placement. CLINICAL INDICATION: Atrial fibrillation. ASA CLASSIFICATION: I. ANESTHESIA: None. ACUTE COMPLICATIONS: None. ESTIMATED BLOOD LOSS: Less than 5 mL. METHOD: The device was placed in the left shoulder using the insertion tool of [employer]. A 5-0 simple running subcuticular Monocryl was then placed to close the wound. Dermabond was applied. RESULTS: Serial number: The device was a [employer], model 37413, serial #[id number]. IMPRESSION: Successful injectable monitor placement. RECOMMENDATION: Discharge home. Job ID: [id number]
== END 2020-06-09 13:21 | disposition home or self-care (01) ==
LOC: SDC 09:16
PROVIDERS: ATTEND Internal Medicine Cardiovascular Disease
PROC: 0JH632Z Insertion of Monitoring Device into Chest Subcutaneous Tissue and Fascia, Percutaneous Approach (ICD-10-PCS; principal; 2020-06-09)
DX: I48.91 Unspecified atrial fibrillation (principal); Z79.2 Long term (current) use of antibiotics; Z79.52 Long term (current) use of systemic steroids; Z79.82 Long term (current) use of aspirin; Z79.899 Other long term (current) drug therapy; Z88.0 Allergy status to penicillin
CPT/HCPCS: 33285; C1764

== ENCOUNTER 2021-08-29 12:32 | Outpatient (CLI) | payer MEDICARE ==
[2021-08-29 22:21] LABS: SARS-CoV-2 PCR by NAA Not Detected (NotDetected)
== END 2021-08-29 12:33 | disposition home or self-care (01) ==
LOC: LABBT 12:32
PROVIDERS: ATTEND Internal Medicine
DX: Z01.812 Encounter for preprocedural laboratory examination (principal); Z20.822 Contact with and (suspected) exposure to COVID-19
CPT/HCPCS: U0003; U0005

== ENCOUNTER 2021-09-03 06:18 | Day surgery (SDC) | payer MEDICARE, OTHER ==
[2021-08-31 11:08] VITALS: BMI 29.7
== END 2021-09-03 09:43 | disposition home or self-care (01) ==
LOC: SDC 06:18
PROVIDERS: ATTEND Internal Medicine
PROC: 0DB98ZX Excision of Duodenum, Via Natural or Artificial Opening Endoscopic, Diagnostic (ICD-10-PCS; principal; 2021-09-03)
PROC: 0DB78ZX Excision of Stomach, Pylorus, Via Natural or Artificial Opening Endoscopic, Diagnostic (ICD-10-PCS; 2021-09-03)
PROC: 0D758ZZ Dilation of Esophagus, Via Natural or Artificial Opening Endoscopic (ICD-10-PCS; 2021-09-03)
PROC: 0DBH8ZX Excision of Cecum, Via Natural or Artificial Opening Endoscopic, Diagnostic (ICD-10-PCS; 2021-09-03)
PROC: 0DBP8ZX Excision of Rectum, Via Natural or Artificial Opening Endoscopic, Diagnostic (ICD-10-PCS; 2021-09-03)
DX: A04.72 Enterocolitis due to Clostridium difficile, not specified as recurrent (principal); K31.89 Other diseases of stomach and duodenum; K63.3 Ulcer of intestine; R07.89 Other chest pain; R13.10 Dysphagia, unspecified; I48.91 Unspecified atrial fibrillation; I10 Essential (primary) hypertension; E78.00 Pure hypercholesterolemia, unspecified; Z79.52 Long term (current) use of systemic steroids; Z79.82 Long term (current) use of aspirin; Z79.899 Other long term (current) drug therapy; Z88.0 Allergy status to penicillin; Z94.0 Kidney transplant status; Z95.2 Presence of prosthetic heart valve
CPT/HCPCS: 88305

== ENCOUNTER 2021-10-21 11:19 | Inpatient (IN) | payer MEDICARE, OTHER ==
[2021-10-21 12:24] LABS: ALT (SGPT) 12 U/L (8-55); AST (SGOT) 14 U/L (5-34); Albumin 3.5 g/dL (3.4-4.8); Alkaline Phosphatase 70 U/L (40-110); Anion Gap 17 mmol/L (10-20); BUN (Urea Nitrogen) 65 mg/dL (8.4-25.7); Bilirubin, Total 1.3 mg/dL (0.2-1.2); Calc. Creatinine Clearance 0 mL/min (70-130); Calcium 9.2 mg/dL (7.8-10.44); Carbon Dioxide 21 mmol/L (23-31); Chloride 100 mmol/L (98-107); Globulin 2.9 g/dL (2.4-3.5); Glucose 146 mg/dL (80-115); Lipase 16 U/L (8-78); Potassium 3.6 mmol/L (3.5-5.1); Protein, Total 6.4 g/dL (5.8-8.1); Sodium 134 mmol/L (136-145)
[2021-10-21 12:40] LABS: Band 6 % (5-11); Eosinophils 2 % (0-10); Hemoglobin 13.3 g/dL (14.0-18.0); Lymphocytes 2 % (21-51); MDiff Complete? YES; Mean Corpuscular HGB CONC 33.7 g/dL (32.0-36.0); Mean Corpuscular Hemoglobin 31.5 pg (27.0-31.0); Mean Corpuscular Volume 93.2 fL (78.0-98.0); Monocytes 11 % (0-10); Neutrophil 79 % (42-75); Platelet Count 97 thou/uL (130-400); Platelet Morphology Comment Appears Decreased; RBC Distribution Width 12.9 % (11.5-14.5); Red Blood Cell (RBC) Count 4.23 mill/uL (4.70-6.10); White Blood Cell (WBC) Count 15.9 thou/uL (4.8-10.8)
[2021-10-21 13:19] LABS: Bilirubin Negative (Negative); Blood, Urine 2+ (Negative); Clarity Extra Turbid (Clear); Glucose, Urine (Dipstick) Normal (Negative); Ketone, Urine Negative (Negative); Leukocyte 500 Leu/uL (Negative); Nitrite Negative (Negative); Protein, Urine (Dipstick) 100 mg/dL (Neg-Trace); Specific Gravity, Urine 1.013 (1.002-1.036); Squamous Epithelial 0-3 HPF (0-3); Urobilinogen Normal mg/dL (Less than 2); pH, Urine 5.5 (5.0-9.0)
[2021-10-21 13:20] LABS: Bacteria/HPF 1+ HPF (None Seen); WBC/HPF 21-50 HPF (0-3)
[2021-10-21] MEDS ORDERED: Vancomycin 1 GM/200 ML BAG ONE (13:34)
[2021-10-21] MEDS ORDERED: cefTRIAXone\\ROCEPHIN 2 GM VIAL ONE (13:34)
[2021-10-21] MEDS ORDERED: Acetaminophen 325 MG TAB PO PRN (17:14)
[2021-10-21] MEDS ORDERED: Lactated Ringer's 1,000 ML IV SCH (17:30)
[2021-10-21 19:54] VITALS: BMI 29.3
[2021-10-21] MEDS: Vancomycin 25 MG/ML Oral SOLN PO SCH (21:19)
[2021-10-21] MEDS: Carvedilol 6.25 MG TAB PO SCH (21:20)
[2021-10-21] MEDS: Tacrolimus 0.5 MG CAP PO SCH (21:20)
[2021-10-21] MEDS: Mycophenolate 250 MG CAP PO SCH (21:20)
[2021-10-21] MEDS: Heparin 5,000 UNITS/ML VIAL SC SCH (21:22)
[2021-10-22] MEDS: Lactated Ringer's 1,000 ML IV SCH ×6 (00:09→21:56)
[2021-10-22] MEDS: Doxazosin Mesylate 4 MG TAB PO SCH (08:39)
[2021-10-22] MEDS: Rosuvastatin 10 MG TAB PO SCH (08:39)
[2021-10-22] MEDS: Aspirin 81 mg Enteric Coated Tablet PO SCH (08:39)
[2021-10-22] MEDS: Tacrolimus 0.5 MG CAP PO SCH ×2 (08:39→21:50)
[2021-10-22] MEDS: Mycophenolate 250 MG CAP PO SCH ×2 (08:40→21:50)
[2021-10-22] MEDS: Carvedilol 6.25 MG TAB PO SCH ×2 (08:40→21:52)
[2021-10-22] MEDS: Vit A,C & E/Lutein/Minerals Tablet PO SCH (08:40)
[2021-10-22] MEDS: predniSONE 5 MG TAB PO SCH (08:40)
[2021-10-22] MEDS: Heparin 5,000 UNITS/ML VIAL SC SCH ×2 (08:41→21:55)
[2021-10-22] MEDS: Vancomycin 25 MG/ML Oral SOLN PO SCH ×2 (08:41→21:51)
[2021-10-22] MEDS: Finasteride 5 MG TAB PO SCH (08:41)
[2021-10-22] MEDS: Cholecalciferol (Vitamin D3) 400 UNITS TAB PO SCH (08:41)
[2021-10-22 11:19] LABS: Hemoglobin 10.9 g/dL (14.0-18.0); Mean Corpuscular HGB CONC 31.9 g/dL (32.0-36.0); Mean Corpuscular Hemoglobin 29.7 pg (27.0-31.0); Mean Corpuscular Volume 93.1 fL (78.0-98.0); Mean Platelet Volume 8.1 fL (7.4-10.4); Platelet Count 107 thou/uL (130-400); RBC Distribution Width 12.8 % (11.5-14.5); Red Blood Cell (RBC) Count 3.69 mill/uL (4.70-6.10); White Blood Cell (WBC) Count 8.9 thou/uL (4.8-10.8)
[2021-10-22 11:37] LABS: Anion Gap 10 mmol/L (10-20); BUN (Urea Nitrogen) 53 mg/dL (8.4-25.7); Calc. Creatinine Clearance 27 mL/min (70-130); Calcium 8.9 mg/dL (7.8-10.44); Carbon Dioxide 25 mmol/L (23-31); Chloride 108 mmol/L (98-107); Glucose 126 mg/dL (80-115); Potassium 3.4 mmol/L (3.5-5.1); Sodium 140 mmol/L (136-145)
[2021-10-22 12:06] LABS: Band 19 % (5-11); Lymphocytes 9 % (21-51); MDiff Complete? YES; Monocytes 9 % (0-10); Neutrophil 62 % (42-75); Platelet Morphology Comment Appears Decreased; Polychromasia SLIGHT = 2-3 cells (100X) (0-2/hpf); Reactive Lymphocytes 1 % (0-10)
[2021-10-22 12:54] LABS: SARS-CoV-2 PCR by NAA Not Detected (NotDetected)
[2021-10-22] MEDS: cefTRIAXone\\ROCEPHIN 2 GM in Sodium Chloride 0.9% 100 ML IVPB SCH (16:14)
[2021-10-23 07:17] LABS: #Eosinphils 0.2 thou/uL (0.0-0.7); #Monocytes 1.1 thou/uL (0.11-0.59); #Neutrophils 7.9 thou/uL (1.40-6.50); %Basophils 0.2 % (0.0-1.0); %Eosinophils 1.6 % (0.0-10.0); %Lymphocytes 9.7 % (21.0-51.0); %Monocytes 11.2 % (0.0-10.0); %Neutrophils 77.4 % (42.0-75.0); Hemoglobin 11.3 g/dL (14.0-18.0); Mean Corpuscular HGB CONC 32.8 g/dL (32.0-36.0); Mean Corpuscular Hemoglobin 30.7 pg (27.0-31.0); Mean Corpuscular Volume 93.7 fL (78.0-98.0); Mean Platelet Volume 8.1 fL (7.4-10.4); Platelet Count 130 thou/uL (130-400); RBC Distribution Width 12.8 % (11.5-14.5); Red Blood Cell (RBC) Count 3.69 mill/uL (4.70-6.10); White Blood Cell (WBC) Count 10.2 thou/uL (4.8-10.8)
[2021-10-23 07:33] LABS: Anion Gap 12 mmol/L (10-20); BUN (Urea Nitrogen) 35 mg/dL (8.4-25.7); Calc. Creatinine Clearance 34 mL/min (70-130); Calcium 8.8 mg/dL (7.8-10.44); Carbon Dioxide 23 mmol/L (23-31); Chloride 109 mmol/L (98-107); Glucose 92 mg/dL (80-115); Potassium 3.4 mmol/L (3.5-5.1); Sodium 141 mmol/L (136-145)
[2021-10-23] MEDS ORDERED: Lidocaine Viscous Sol 2% 15 ml UD Cup SSW PRN (07:53)
[2021-10-23] MEDS: Aspirin 81 mg Enteric Coated Tablet PO SCH (08:33)
[2021-10-23] MEDS: Finasteride 5 MG TAB PO SCH (08:33)
[2021-10-23] MEDS: Tacrolimus 0.5 MG CAP PO SCH ×2 (08:33→20:20)
[2021-10-23] MEDS: valACYclovir 500 MG TAB PO SCH ×2 (08:33→20:22)
[2021-10-23] MEDS: Doxazosin Mesylate 4 MG TAB PO SCH (08:33)
[2021-10-23] MEDS: Mycophenolate 250 MG CAP PO SCH ×2 (08:34→20:21)
[2021-10-23] MEDS: Carvedilol 6.25 MG TAB PO SCH ×2 (08:34→20:22)
[2021-10-23] MEDS: Rosuvastatin 10 MG TAB PO SCH (08:34)
[2021-10-23] MEDS: predniSONE 5 MG TAB PO SCH (08:34)
[2021-10-23] MEDS: Vit A,C & E/Lutein/Minerals Tablet PO SCH (08:35)
[2021-10-23] MEDS: Cholecalciferol (Vitamin D3) 400 UNITS TAB PO SCH (08:35)
[2021-10-23] MEDS: Heparin 5,000 UNITS/ML VIAL SC SCH ×2 (08:38→20:22)
[2021-10-23] MEDS: Vancomycin 25 MG/ML Oral SOLN PO SCH ×2 (08:39→20:20)
[2021-10-23 09:22] LABS: ALT (SGPT) 9 U/L (8-55); AST (SGOT) 11 U/L (5-34); Alkaline Phosphatase 54 U/L (40-110); Bilirubin, Direct 0.2 mg/dL (0.1-0.3); Bilirubin, Total 0.4 mg/dL (0.2-1.2); Protein, Total 5.4 g/dL (5.8-8.1)
[2021-10-23] MEDS: cefTRIAXone\\ROCEPHIN 2 GM in Sodium Chloride 0.9% 100 ML IVPB SCH (15:31)
[2021-10-23] MEDS ORDERED: hydrALAZINE 20 MG/ML VIAL SLOW IVP PRN (17:21)
[2021-10-24 07:53] VITALS: TEMP 98
[2021-10-24 07:57] LABS: #Basophils 0.1 thou/uL (0.0-0.2); #Eosinphils 0.2 thou/uL (0.0-0.7); #Lymphocytes 1.4 thou/uL (1.20-3.40); #Monocytes 1.1 thou/uL (0.11-0.59); #Neutrophils 8.8 thou/uL (1.40-6.50); %Basophils 0.7 % (0.0-1.0); %Eosinophils 2.1 % (0.0-10.0); %Lymphocytes 11.8 % (21.0-51.0); %Monocytes 9.6 % (0.0-10.0); %Neutrophils 75.8 % (42.0-75.0); Hemoglobin 12.8 g/dL (14.0-18.0); Mean Corpuscular HGB CONC 32.9 g/dL (32.0-36.0); Mean Corpuscular Hemoglobin 31.6 pg (27.0-31.0); Mean Corpuscular Volume 95.9 fL (78.0-98.0); Mean Platelet Volume 8.9 fL (7.4-10.4); Platelet Count 104 thou/uL (130-400); RBC Distribution Width 12.9 % (11.5-14.5); Red Blood Cell (RBC) Count 4.05 mill/uL (4.70-6.10); White Blood Cell (WBC) Count 11.6 thou/uL (4.8-10.8)
[2021-10-24] MEDS: Mycophenolate 250 MG CAP PO SCH (08:49)
[2021-10-24] MEDS: Vancomycin 25 MG/ML Oral SOLN PO SCH (08:49)
[2021-10-24] MEDS: Doxazosin Mesylate 4 MG TAB PO SCH (08:49)
[2021-10-24] MEDS: Tacrolimus 0.5 MG CAP PO SCH (08:50)
[2021-10-24] MEDS: Rosuvastatin 10 MG TAB PO SCH (08:50)
[2021-10-24] MEDS: Vit A,C & E/Lutein/Minerals Tablet PO SCH (08:50)
[2021-10-24] MEDS: valACYclovir 500 MG TAB PO SCH (08:50)
[2021-10-24] MEDS: Aspirin 81 mg Enteric Coated Tablet PO SCH (08:50)
[2021-10-24] MEDS: predniSONE 5 MG TAB PO SCH (08:50)
[2021-10-24] MEDS: Finasteride 5 MG TAB PO SCH (08:51)
[2021-10-24] MEDS: Heparin 5,000 UNITS/ML VIAL SC SCH (08:51)
[2021-10-24] MEDS: Cholecalciferol (Vitamin D3) 400 UNITS TAB PO SCH (08:51)
[2021-10-24] MEDS: Carvedilol 6.25 MG TAB PO SCH (08:51)
[2021-10-24] MEDS ORDERED: Amlodipine 5 MG TAB PO SCH (09:00)
[2021-10-24 09:34] LABS: Anion Gap 15 mmol/L (10-20); BUN (Urea Nitrogen) 23 mg/dL (8.4-25.7); Calc. Creatinine Clearance 40 mL/min (70-130); Calcium 9.2 mg/dL (7.8-10.44); Carbon Dioxide 24 mmol/L (23-31); Chloride 106 mmol/L (98-107); Glucose 104 mg/dL (80-115); Potassium 3.5 mmol/L (3.5-5.1); Sodium 141 mmol/L (136-145)
[2021-10-24 12:52] VITALS: BP 144/71
== END 2021-10-24 12:48 | disposition home or self-care (01) | DRG 699 ==
LOC: ERS 11:19 → T4-A 16:39
PROVIDERS: ADMIT Student in an Organized Health Care Education/Training Program; ATTEND Student in an Organized Health Care Education/Training Program
DX: T86.13 Kidney transplant infection (principal); N17.9 Acute kidney failure, unspecified; E87.2 Acidosis; E87.1 Hypo-osmolality and hyponatremia; N18.4 Chronic kidney disease, stage 4 (severe); N10 Acute pyelonephritis; R78.81 Bacteremia; E78.5 Hyperlipidemia, unspecified; E78.00 Pure hypercholesterolemia, unspecified; B96.89 Other specified bacterial agents as the cause of diseases classified elsewhere; I12.9 Hypertensive chronic kidney disease with stage 1 through stage 4 chronic kidney disease, or unspecified chronic kidney disease; E87.6 Hypokalemia; I48.0 Paroxysmal atrial fibrillation; Y83.8 Other surgical procedures as the cause of abnormal reaction of the patient, or of later complication, without mention of misadventure at the time of the procedure; Z90.49 Acquired absence of other specified parts of digestive tract; Z88.0 Allergy status to penicillin; Z85.528 Personal history of other malignant neoplasm of kidney; Z79.82 Long term (current) use of aspirin; Z79.899 Other long term (current) drug therapy
CPT/HCPCS: 36415; 74176; 76775; 80048; 80053; 80076; 80197; 81003; 81015; 83605; 83690; 84145; 85025; 87040; 87077; 87086; 87149; 87186; 87205; 96365; 96367; J0696; J1644; J3370; J3490; J7120; J7507; J7512; J7517; U0003; U0005

== ENCOUNTER 2022-05-15 13:15 | Inpatient (IN) | payer MEDICARE, OTHER ==
[~2022-05-15 13:15] MED LIST changes: -Acetaminophen/Codeine 30-300mg Tablet ONE; -Bupivacaine PF 0.5% 30 ML VIAL ONE; -Clindamycin/D5W 900 mg/50 ml Premix Bag ONE; -Dexamethasone 20 MG/5 ML VIAL ONE; -EPINEPHrine 1 MG/ML AMP ONE; -Fentanyl 100 MCG/2 ML VIAL ONE; -Fentanyl 250 MCG/5 ML VIAL ONE; -HYDROmorphone 0.5 MG/0.5 ML SYRINGE ONE; +ISOVUE-370 76%-LOCM 1 ML ONE; -Levofloxacin 500 mg/D5W 100 ml Premix Bag ONE; -Midazolam HCl 2 mg/2 ml Vial ONE; -Morphine 2 MG/ML SYRINGE ONE; -Morphine 4 MG/ML VIAL ONE; -Ondansetron PF 4 MG/2 ML Vial ONE; -PHENYLEPHRINE-NS 100 MCG/ML 10 ML SYRINGE ONE; -PROPOFOL 200 MG/20 ML VIAL ONE; -Rocuronium Bromide 10 MG/ML (10ML VIAL) ONE; -SUGAMMADEX SODIUM 200 MG/2 ML VIAL ONE; -Tamsulosin HCl 0.4 MG CAP ONE; -Thrombin 5000 UNITS/5 ML VIAL ONE; -ePHEDrine/0.9% NaCl/PF SYRINGE 50 mg/10 ml ONE
[2022-05-15 13:57] LABS: Hemoglobin 14.1 g/dL (14.0-18.0); Mean Corpuscular HGB CONC 31.7 g/dL (32.0-36.0); Mean Corpuscular Hemoglobin 30.1 pg (27.0-31.0); Mean Corpuscular Volume 95.1 fL (78.0-98.0); Mean Platelet Volume 7.5 fL (7.4-10.4); Platelet Count 147 thou/uL (130-400); RBC Distribution Width 12.5 % (11.5-14.5); Red Blood Cell (RBC) Count 4.68 mill/uL (4.70-6.10); White Blood Cell (WBC) Count 26.8 thou/uL (4.8-10.8)
[2022-05-15 14:16] LABS: ALT (SGPT) 9 U/L (8-55); AST (SGOT) 15 U/L (5-34); Albumin 4.1 g/dL (3.4-4.8); Alkaline Phosphatase 61 U/L (40-110); Anion Gap 18 mmol/L (10-20); BUN (Urea Nitrogen) 23 mg/dL (8.4-25.7); Calc. Creatinine Clearance 0 mL/min (70-130); Calcium 9.4 mg/dL (7.8-10.44); Carbon Dioxide 20 mmol/L (23-31); Chloride 107 mmol/L (98-107); Estimated GFR 42; Globulin 2.4 g/dL (2.4-3.5); Glucose 135 mg/dL (80-115); Protein, Total 6.5 g/dL (5.8-8.1); Sodium 141 mmol/L (136-145)
[2022-05-15 14:18] LABS: Band 13 % (5-11); MDiff Complete? YES; Monocytes 6 % (0-10); Neutrophil 80 % (42-75); Ovalocytes SLIGHT = 2-5 cells (100X) (0-1/hpf); Platelet Morphology Comment Appears Adequate; Reactive Lymphocytes 1 % (0-10)
[2022-05-15 14:39] LABS: CKMB 0.7 ng/mL (0-6.6)
[2022-05-15 15:08] LABS: CK (CPK) 44 U/L (30-200); Magnesium 1.5 mg/dL (1.6-2.6)
[2022-05-15] MEDS ORDERED: Cefepime 2 GM VIAL ONE (15:09)
[2022-05-15] MEDS ORDERED: Aspirin 300 MG Suppository ONE (16:40)
[2022-05-15] MEDS ORDERED: Aspirin Chewable 81 MG TAB ONE (16:40)
[2022-05-15 16:41] LABS: SARS-CoV-2 NAA Rapid Test Not Detected (NotDetected)
[2022-05-15] MEDS ORDERED: Senokot S 8.6-50 MG TAB PO PRN (17:01)
[2022-05-15] MEDS ORDERED: Ondansetron ODT 4 MG TAB PO PRN (17:01)
[2022-05-15] MEDS ORDERED: NIFEdipine XL 30 MG TAB PO PRN (17:55)
[2022-05-15] MEDS ORDERED: Vancomycin 1 GM/200 ML BAG ONE (18:43)
[2022-05-15 19:06] LABS: Bilirubin Negative (Negative); Blood, Urine Negative (Negative); Clarity Clear (Clear); Glucose, Urine (Dipstick) Normal (Negative); Ketone, Urine Negative (Negative); Leukocyte Negative Leu/uL (Negative); Nitrite Negative (Negative); Protein, Urine (Dipstick) 20 mg/dL (Neg-Trace); Specific Gravity, Urine 1.019 (1.002-1.036); Urobilinogen Normal mg/dL (Less than 2); pH, Urine 5.5 (5.0-9.0)
[2022-05-15] MEDS ORDERED: VANCOMYCIN 2 GRAM/500 ML BAG 2 GM in Premix Bag 1 BAG IVPB SCH (19:15)
[2022-05-15 20:52] VITALS: BMI 29.5
[2022-05-15] MEDS: Piperacillin/Tazobactam 3.375 GM in Sodium Chloride 0.9% 100 ML IVPB SCH ×2 (21:06→22:30)
[2022-05-15] MEDS: Carvedilol 6.25 MG TAB PO SCH (21:08)
[2022-05-15] MEDS: Famotidine 20 MG TAB PO SCH (21:09)
[2022-05-15] MEDS: Acetaminophen 325 MG TAB PO PRN (21:09)
[2022-05-15] MEDS: Mycophenolate 250 MG CAP PO SCH (21:09)
[2022-05-15] MEDS ORDERED: Piperacillin/Tazobactam 3.375 GM in Sodium Chloride 0.9% 100 ML IVPB SCH (22:00)
[2022-05-16] MEDS: Cefepime 2 GM in Sodium Chloride 0.9% 100 ML IVPB SCH ×2 (03:20→14:19)
[2022-05-16] MEDS: Piperacillin/Tazobactam 3.375 GM in Sodium Chloride 0.9% 100 ML IVPB SCH ×3 (03:20→16:41)
[2022-05-16 05:01] LABS: Albumin 3.6 g/dL (3.4-4.8); Anion Gap 15 mmol/L (10-20); BUN (Urea Nitrogen) 22 mg/dL (8.4-25.7); Bilirubin, Total 2.8 mg/dL (0.2-1.2); Calc. Creatinine Clearance 42 mL/min (70-130); Calcium 8.6 mg/dL (7.8-10.44); Carbon Dioxide 21 mmol/L (23-31); Chloride 107 mmol/L (98-107); Estimated GFR 35; Glucose 144 mg/dL (80-115); Potassium 3.7 mmol/L (3.5-5.1); Protein, Total 5.8 g/dL (5.8-8.1); Sodium 139 mmol/L (136-145)
[2022-05-16 05:02] LABS: ALT (SGPT) 14 U/L (8-55); AST (SGOT) 19 U/L (5-34); Alkaline Phosphatase 50 U/L (40-110); Globulin 2.2 g/dL (2.4-3.5)
[2022-05-16 06:17] LABS: #Lymphocytes 0.9 thou/uL (1.20-3.40); #Monocytes 1.7 thou/uL (0.11-0.59); #Neutrophils 19.5 thou/uL (1.40-6.50); %Lymphocytes 4.3 % (21.0-51.0); %Monocytes 7.7 % (0.0-10.0); Mean Corpuscular Hemoglobin 30.6 pg (27.0-31.0); Mean Corpuscular Volume 95.7 fL (78.0-98.0); Mean Platelet Volume 7.4 fL (7.4-10.4); Platelet Count 113 thou/uL (130-400); Platelet Morphology Comment Appears Decreased; RBC Distribution Width 12.7 % (11.5-14.5); Red Blood Cell (RBC) Count 4.25 mill/uL (4.70-6.10); White Blood Cell (WBC) Count 22.2 thou/uL (4.8-10.8)
[2022-05-16] MEDS ORDERED: Enoxaparin Sodium 30 MG/0.3 ML SYRINGE SC SCH (09:00)
[2022-05-16] MEDS: Rosuvastatin 10 MG TAB PO SCH (09:13)
[2022-05-16] MEDS: Finasteride 5 MG TAB PO SCH (09:13)
[2022-05-16] MEDS: Carvedilol 6.25 MG TAB PO SCH ×2 (09:13→20:44)
[2022-05-16] MEDS: Mycophenolate 250 MG CAP PO SCH ×2 (09:13→20:43)
[2022-05-16] MEDS: predniSONE 5 MG TAB PO SCH (09:14)
[2022-05-16] MEDS: Aspirin 81 mg Enteric Coated Tablet PO SCH (09:14)
[2022-05-16] MEDS: Heparin 5,000 UNITS/ML VIAL SC SCH ×2 (09:14→20:44)
[2022-05-16] MEDS: Sodium Chloride 0.9% 1,000 ML IV SCH ×2 (09:14→20:46)
[2022-05-16] MEDS: Acetaminophen 325 MG TAB PO PRN ×2 (09:20→16:40)
[2022-05-16] MEDS: Famotidine 20 MG TAB PO SCH (20:43)
[2022-05-16] MEDS: Doxazosin Mesylate 4 MG TAB PO SCH (20:44)
[2022-05-16] MEDS ORDERED: DOXAZOSIN MESYLATE 8 MG PO SCH (21:00)
[2022-05-17] MEDS: Acetaminophen 325 MG TAB PO PRN (00:48)
[2022-05-17] MEDS: Piperacillin/Tazobactam 3.375 GM in Sodium Chloride 0.9% 100 ML IVPB SCH ×3 (00:48→17:46)
[2022-05-17 04:17] LABS: #Lymphocytes 0.8 thou/uL (1.20-3.40); #Monocytes 1.4 thou/uL (0.11-0.59); #Neutrophils 17.5 thou/uL (1.40-6.50); %Basophils 0.1 % (0.0-1.0); %Eosinophils 0.1 % (0.0-10.0); %Lymphocytes 3.9 % (21.0-51.0); %Monocytes 7.2 % (0.0-10.0); %Neutrophils 88.7 % (42.0-75.0); Hemoglobin 11.8 g/dL (14.0-18.0); Mean Corpuscular HGB CONC 32.4 g/dL (32.0-36.0); Mean Corpuscular Hemoglobin 31.1 pg (27.0-31.0); Mean Platelet Volume 7.7 fL (7.4-10.4); Platelet Count 102 thou/uL (130-400); RBC Distribution Width 12.6 % (11.5-14.5); White Blood Cell (WBC) Count 19.7 thou/uL (4.8-10.8)
[2022-05-17 04:47] LABS: ALT (SGPT) 15 U/L (8-55); AST (SGOT) 22 U/L (5-34); Albumin 3.2 g/dL (3.4-4.8); Alkaline Phosphatase 43 U/L (40-110); Anion Gap 15 mmol/L (10-20); BUN (Urea Nitrogen) 22 mg/dL (8.4-25.7); Bilirubin, Total 1.4 mg/dL (0.2-1.2); Calc. Creatinine Clearance 38 mL/min (70-130); Calcium 8.7 mg/dL (7.8-10.44); Carbon Dioxide 20 mmol/L (23-31); Chloride 108 mmol/L (98-107); Estimated GFR 31; Globulin 2.7 g/dL (2.4-3.5); Glucose 122 mg/dL (80-115); Magnesium 1.6 mg/dL (1.6-2.6); Potassium 3.5 mmol/L (3.5-5.1); Protein, Total 5.9 g/dL (5.8-8.1); Sodium 139 mmol/L (136-145)
[2022-05-17] MEDS: Cefepime 2 GM in Sodium Chloride 0.9% 100 ML IVPB SCH (05:19)
[2022-05-17] MEDS: Finasteride 5 MG TAB PO SCH (08:53)
[2022-05-17] MEDS: Tacrolimus 1 MG CAP PO SCH (08:53)
[2022-05-17] MEDS: Carvedilol 6.25 MG TAB PO SCH ×2 (08:53→21:49)
[2022-05-17] MEDS: Mycophenolate 250 MG CAP PO SCH ×2 (08:53→21:50)
[2022-05-17] MEDS: Aspirin 81 mg Enteric Coated Tablet PO SCH (08:54)
[2022-05-17] MEDS: Heparin 5,000 UNITS/ML VIAL SC SCH ×2 (08:54→21:50)
[2022-05-17] MEDS: Rosuvastatin 10 MG TAB PO SCH (08:54)
[2022-05-17] MEDS: predniSONE 5 MG TAB PO SCH (08:54)
[2022-05-17] MEDS ORDERED: Cefepime 1 GM in Sodium Chloride 0.9% 100 ML IVPB SCH (15:00)
[2022-05-17] MEDS: Famotidine 20 MG TAB PO SCH (21:50)
[2022-05-17] MEDS: Doxazosin Mesylate 4 MG TAB PO SCH (21:50)
[2022-05-18] MEDS: Piperacillin/Tazobactam 3.375 GM in Sodium Chloride 0.9% 100 ML IVPB SCH ×3 (03:24→17:22)
[2022-05-18 04:31] LABS: #Eosinphils 0.2 thou/uL (0.0-0.7); #Monocytes 1.2 thou/uL (0.11-0.59); #Neutrophils 10.7 thou/uL (1.40-6.50); %Eosinophils 1.5 % (0.0-10.0); %Lymphocytes 7.7 % (21.0-51.0); %Monocytes 9.2 % (0.0-10.0); %Neutrophils 81.6 % (42.0-75.0); Hemoglobin 11.9 g/dL (14.0-18.0); Mean Corpuscular HGB CONC 31.8 g/dL (32.0-36.0); Mean Corpuscular Hemoglobin 30.6 pg (27.0-31.0); Mean Corpuscular Volume 96.1 fL (78.0-98.0); Mean Platelet Volume 7.9 fL (7.4-10.4); Platelet Count 104 thou/uL (130-400); RBC Distribution Width 12.4 % (11.5-14.5); White Blood Cell (WBC) Count 13.1 thou/uL (4.8-10.8)
[2022-05-18 04:48] LABS: ALT (SGPT) 13 U/L (8-55); AST (SGOT) 16 U/L (5-34); Albumin 3.3 g/dL (3.4-4.8); Alkaline Phosphatase 41 U/L (40-110); Anion Gap 14 mmol/L (10-20); BUN (Urea Nitrogen) 18 mg/dL (8.4-25.7); Bilirubin, Total 0.9 mg/dL (0.2-1.2); Calc. Creatinine Clearance 47 mL/min (70-130); Calcium 8.8 mg/dL (7.8-10.44); Carbon Dioxide 20 mmol/L (23-31); Chloride 109 mmol/L (98-107); Estimated GFR 40; Globulin 2.4 g/dL (2.4-3.5); Glucose 99 mg/dL (80-115); Magnesium 1.7 mg/dL (1.6-2.6); Potassium 3.2 mmol/L (3.5-5.1); Protein, Total 5.7 g/dL (5.8-8.1); Sodium 140 mmol/L (136-145)
[2022-05-18] MEDS ORDERED: hydrALAZINE 20 MG/ML VIAL SLOW IVP PRN (07:58)
[2022-05-18] MEDS ORDERED: Magnesium 2 GM/50 ML(in water) 2 GM in Premix Bag 1 BAG IVPB SCH (08:00)
[2022-05-18] MEDS: Rosuvastatin 10 MG TAB PO SCH (09:13)
[2022-05-18] MEDS: Carvedilol 6.25 MG TAB PO SCH ×2 (09:13→21:00)
[2022-05-18] MEDS: predniSONE 5 MG TAB PO SCH (09:13)
[2022-05-18] MEDS: Aspirin 81 mg Enteric Coated Tablet PO SCH (09:14)
[2022-05-18] MEDS: Heparin 5,000 UNITS/ML VIAL SC SCH ×2 (09:14→21:01)
[2022-05-18] MEDS: Finasteride 5 MG TAB PO SCH (09:14)
[2022-05-18] MEDS: Tacrolimus 1 MG CAP PO SCH (09:14)
[2022-05-18] MEDS: Potassium Chloride 20 MEQ TAB PO SCH ×2 (09:14→12:36)
[2022-05-18] MEDS: Mycophenolate 250 MG CAP PO SCH ×2 (09:15→21:02)
[2022-05-18] MEDS: Famotidine 20 MG TAB PO SCH (21:00)
[2022-05-18] MEDS: Doxazosin Mesylate 4 MG TAB PO SCH (21:00)
[2022-05-19] MEDS: Piperacillin/Tazobactam 3.375 GM in Sodium Chloride 0.9% 100 ML IVPB SCH ×3 (02:08→18:31)
[2022-05-19 04:34] LABS: #Eosinphils 0.3 thou/uL (0.0-0.7); #Lymphocytes 1.2 thou/uL (1.20-3.40); #Monocytes 0.7 thou/uL (0.11-0.59); #Neutrophils 6.8 thou/uL (1.40-6.50); %Basophils 0.2 % (0.0-1.0); %Eosinophils 3.5 % (0.0-10.0); %Lymphocytes 12.9 % (21.0-51.0); %Monocytes 7.5 % (0.0-10.0); %Neutrophils 75.8 % (42.0-75.0); Hemoglobin 12.2 g/dL (14.0-18.0); Mean Corpuscular HGB CONC 32.3 g/dL (32.0-36.0); Mean Corpuscular Hemoglobin 30.9 pg (27.0-31.0); Mean Corpuscular Volume 95.5 fL (78.0-98.0); Mean Platelet Volume 7.9 fL (7.4-10.4); Platelet Count 134 thou/uL (130-400); RBC Distribution Width 12.2 % (11.5-14.5); Red Blood Cell (RBC) Count 3.96 mill/uL (4.70-6.10); White Blood Cell (WBC) Count 8.9 thou/uL (4.8-10.8)
[2022-05-19 04:57] LABS: Anion Gap 13 mmol/L (10-20); BUN (Urea Nitrogen) 16 mg/dL (8.4-25.7); Calc. Creatinine Clearance 54 mL/min (70-130); Calcium 9.1 mg/dL (7.8-10.44); Carbon Dioxide 23 mmol/L (23-31); Chloride 111 mmol/L (98-107); Estimated GFR 48; Glucose 97 mg/dL (80-115); Magnesium 2.1 mg/dL (1.6-2.6); Potassium 3.5 mmol/L (3.5-5.1); Sodium 143 mmol/L (136-145)
[2022-05-19] MEDS: Amlodipine 5 MG TAB PO SCH ×2 (11:06→21:41)
[2022-05-19] MEDS: Finasteride 5 MG TAB PO SCH (11:07)
[2022-05-19] MEDS: Carvedilol 6.25 MG TAB PO SCH ×2 (11:07→21:41)
[2022-05-19] MEDS: Aspirin 81 mg Enteric Coated Tablet PO SCH (11:07)
[2022-05-19] MEDS: Mycophenolate 250 MG CAP PO SCH ×2 (11:09→21:41)
[2022-05-19] MEDS: Rosuvastatin 10 MG TAB PO SCH (11:10)
[2022-05-19] MEDS: Heparin 5,000 UNITS/ML VIAL SC SCH ×2 (11:10→21:42)
[2022-05-19] MEDS: predniSONE 5 MG TAB PO SCH (11:10)
[2022-05-19] MEDS: Tacrolimus 1 MG CAP PO SCH (11:10)
[2022-05-19] MEDS: Famotidine 20 MG TAB PO SCH (21:41)
[2022-05-19] MEDS: Doxazosin Mesylate 4 MG TAB PO SCH (21:41)
[2022-05-20] MEDS: Piperacillin/Tazobactam 3.375 GM in Sodium Chloride 0.9% 100 ML IVPB SCH ×2 (02:29→10:48)
[2022-05-20 06:30] LABS: #Eosinphils 0.3 thou/uL (0.0-0.7); #Lymphocytes 1.3 thou/uL (1.20-3.40); #Monocytes 0.8 thou/uL (0.11-0.59); #Neutrophils 6.2 thou/uL (1.40-6.50); %Basophils 0.5 % (0.0-1.0); %Eosinophils 3.7 % (0.0-10.0); %Lymphocytes 15.2 % (21.0-51.0); %Monocytes 8.8 % (0.0-10.0); %Neutrophils 71.9 % (42.0-75.0); Hemoglobin 12.8 g/dL (14.0-18.0); Mean Corpuscular HGB CONC 31.8 g/dL (32.0-36.0); Mean Corpuscular Hemoglobin 30.6 pg (27.0-31.0); Mean Corpuscular Volume 96.1 fL (78.0-98.0); Mean Platelet Volume 7.4 fL (7.4-10.4); Platelet Count 176 thou/uL (130-400); RBC Distribution Width 12.3 % (11.5-14.5); White Blood Cell (WBC) Count 8.7 thou/uL (4.8-10.8)
[2022-05-20 06:51] LABS: Anion Gap 13 mmol/L (10-20); BUN (Urea Nitrogen) 13 mg/dL (8.4-25.7); Calc. Creatinine Clearance 62 mL/min (70-130); Calcium 9.4 mg/dL (7.8-10.44); Carbon Dioxide 23 mmol/L (23-31); Chloride 109 mmol/L (98-107); Estimated GFR 57; Glucose 112 mg/dL (80-115); Potassium 3.9 mmol/L (3.5-5.1); Sodium 141 mmol/L (136-145)
[2022-05-20] MEDS: predniSONE 5 MG TAB PO SCH (08:31)
[2022-05-20] MEDS: Tacrolimus 1 MG CAP PO SCH (08:31)
[2022-05-20] MEDS: Finasteride 5 MG TAB PO SCH (08:32)
[2022-05-20] MEDS: Rosuvastatin 10 MG TAB PO SCH (08:32)
[2022-05-20] MEDS: Carvedilol 6.25 MG TAB PO SCH (08:32)
[2022-05-20] MEDS: Amlodipine 5 MG TAB PO SCH (08:32)
[2022-05-20 08:33] VITALS: BP 145/80; TEMP 97.5
[2022-05-20] MEDS: Heparin 5,000 UNITS/ML VIAL SC SCH (08:33)
[2022-05-20] MEDS: Mycophenolate 250 MG CAP PO SCH (08:33)
[2022-05-20] MEDS: Aspirin 81 mg Enteric Coated Tablet PO SCH (08:33)
[2022-05-20 14:13] LABS: Tacrolimus 2.7 ng/mL (2.0-20.0)
== END 2022-05-20 14:30 | disposition home or self-care (01) | DRG 872 ==
LOC: ERS 13:15 → ERHOLD 17:01 → 2NO 20:18 → T4-B 05-19 13:54
PROVIDERS: ADMIT Internal Medicine; ATTEND Internal Medicine
DX: A41.81 Sepsis due to Enterococcus (principal); N17.9 Acute kidney failure, unspecified; I48.20 Chronic atrial fibrillation, unspecified; N39.0 Urinary tract infection, site not specified; D84.821 Immunodeficiency due to drugs; T86.19 Other complication of kidney transplant; Z20.822 Contact with and (suspected) exposure to COVID-19; E78.00 Pure hypercholesterolemia, unspecified; I12.9 Hypertensive chronic kidney disease with stage 1 through stage 4 chronic kidney disease, or unspecified chronic kidney disease; E83.42 Hypomagnesemia; N18.9 Chronic kidney disease, unspecified; N40.0 Benign prostatic hyperplasia without lower urinary tract symptoms; Z90.49 Acquired absence of other specified parts of digestive tract; Z98.890 Other specified postprocedural states; Z98.42 Cataract extraction status, left eye; Z98.41 Cataract extraction status, right eye; Z85.528 Personal history of other malignant neoplasm of kidney; Z88.0 Allergy status to penicillin; Z79.82 Long term (current) use of aspirin; Z79.52 Long term (current) use of systemic steroids; Z79.899 Other long term (current) drug therapy; Z82.49 Family history of ischemic heart disease and other diseases of the circulatory system; Z83.438 Family history of other disorder of lipoprotein metabolism and other lipidemia; Z95.810 Presence of automatic (implantable) cardiac defibrillator
CPT/HCPCS: 36415; 71046; 74177; 80048; 80053; 80197; 81003; 82550; 82553; 83605; 83735; 84145; 84484; 85025; 87040; 87077; 87086; 87186; 93005; 94760; 96361; 96365; 96366; 96375; J0360; J0692; J1644; J2543; J3370; J3475; J3490; J7050; J7507; J7512; J7517; Q9966

== ENCOUNTER 2022-08-14 19:30 | Outpatient (CLI) | payer MEDICARE, OTHER | END 2022-08-14 19:31 | disposition home or self-care (01) | LOC: SLEEPLAB 19:30 | PROVIDERS: ATTEND Family Medicine | DX: G47.33 Obstructive sleep apnea (adult) (pediatric) (principal); R53.83 Other fatigue; R06.83 Snoring; G47.10 Hypersomnia, unspecified; K21.9 Gastro-esophageal reflux disease without esophagitis; I48.91 Unspecified atrial fibrillation; G47.00 Insomnia, unspecified; I13.2 Hypertensive heart and chronic kidney disease with heart failure and with stage 5 chronic kidney disease, or end stage renal disease; I50.9 Heart failure, unspecified; N18.6 End stage renal disease | CPT/HCPCS: 95811 ==

== ENCOUNTER 2022-10-07 11:02 | Outpatient (CLI) | payer MEDICARE, OTHER ==
[2022-10-07 12:25] LABS: Bilirubin Neg (Negative); Blood, Urine 25 (Negative); Clarity Cloudy (Clear); Glucose, Urine (Dipstick) Normal (Negative); Ketone, Urine Negative (Negative); Leukocyte 500 (Negative); Nitrite Negative (Negative); Protein, Urine (Dipstick) 30 mg/dl (Neg-Trace); Specific Gravity, Urine 1.015 (1.005-1.030); Urobilinogen Normal mg/dL (Less than 2)
[2022-10-07 12:30] LABS: Hemoglobin 12.6 g/dL (13.5-17.5); Mean Corpuscular HGB CONC 31.7 g/dL (32.0-36.0); Mean Corpuscular Hemoglobin 29.5 pg (27.0-33.0); Platelet Count 181 10x3/uL (150-450); RBC Distribution Width 14.2 % (11.5-14.5); Red Blood Cell (RBC) Count 4.27 10x6/uL (4.32-5.72); White Blood Cell (WBC) Count 14.7 10x3/uL (3.5-10.5)
[2022-10-07 12:39] LABS: Bacteria/HPF Rare-Few HPF (None Seen); Squamous Epithelial 0-3 HPF (0-3); WBC/HPF Greater Than 50 HPF (0-3)
[2022-10-07 12:44] LABS: PTT 24.8 sec (22.0-33.0); Prothrombin Time 11.2 sec (9.5-12.1)
[2022-10-07 12:56] LABS: Anion Gap 20 mmol/L (10-20); BUN (Urea Nitrogen) 21 mg/dL (8.4-25.7); Calc. Creatinine Clearance 0 mL/min (70-130); Calcium 9.4 mg/dL (7.8-10.44); Carbon Dioxide 15 mmol/L (23-31); Chloride 113 mmol/L (98-107); Estimated GFR 41; Glucose 136 mg/dL (80-115); Potassium 4.6 mmol/L (3.5-5.1); Sodium 143 mmol/L (136-145)
== END 2022-10-07 11:03 | disposition home or self-care (01) ==
LOC: LABBT 11:02
PROVIDERS: ATTEND Urology
DX: Z01.818 Encounter for other preprocedural examination (principal); Z51.81 Encounter for therapeutic drug level monitoring; I48.91 Unspecified atrial fibrillation; Z79.01 Long term (current) use of anticoagulants
CPT/HCPCS: 80048; 81001; 85027; 85610; 85730; 87077; 87086; 87186; 93005; 93010

== ENCOUNTER 2022-10-17 05:53 | Day surgery (SDC) | payer MEDICARE, OTHER ==
[2022-10-16 14:55] VITALS: BMI 29.1
[2022-10-17] MEDS ORDERED: fentaNYL PF 100 MCG/2 ML SYRINGE ONE ×2 (07:06→07:08)
[2022-10-17] MEDS ORDERED: Levofloxacin 500 mg/D5W 100 ml Premix Bag ONE (07:30)
[2022-10-17] MEDS ORDERED: PROPOFOL 200 MG/20 ML VIAL ONE (07:42)
[2022-10-17] MEDS ORDERED: Phenylephrine 10 MG/ML VIAL ONE (07:42)
[2022-10-17] MEDS ORDERED: Dexamethasone 20 MG/5 ML VIAL ONE (07:42)
[2022-10-17] MEDS ORDERED: Ondansetron PF 4 MG/2 ML Vial ONE (07:42)
[2022-10-17] MEDS ORDERED: Oxybutynin 5 MG TAB ONE (08:44)
[2022-10-17] MEDS ORDERED: Phenazopyridine HCl 100 MG TAB ONE (08:44)
== END 2022-10-17 10:45 | disposition home or self-care (01) ==
LOC: SDC 05:53
PROVIDERS: ATTEND Urology
PROC: 0VT08ZZ Resection of Prostate, Via Natural or Artificial Opening Endoscopic (ICD-10-PCS; principal; 2022-10-17)
DX: N40.1 Benign prostatic hyperplasia with lower urinary tract symptoms (principal); N13.8 Other obstructive and reflux uropathy; R39.12 Poor urinary stream; N39.0 Urinary tract infection, site not specified; I13.2 Hypertensive heart and chronic kidney disease with heart failure and with stage 5 chronic kidney disease, or end stage renal disease; N18.6 End stage renal disease; I50.9 Heart failure, unspecified; I48.0 Paroxysmal atrial fibrillation; E29.1 Testicular hypofunction; G47.30 Sleep apnea, unspecified; I42.0 Dilated cardiomyopathy; N52.1 Erectile dysfunction due to diseases classified elsewhere; K21.9 Gastro-esophageal reflux disease without esophagitis; Z85.528 Personal history of other malignant neoplasm of kidney; Z85.54 Personal history of malignant neoplasm of ureter; Z79.2 Long term (current) use of antibiotics; Z79.52 Long term (current) use of systemic steroids; Z79.621 Long term (current) use of calcineurin inhibitor; Z79.82 Long term (current) use of aspirin; Z79.899 Other long term (current) drug therapy; Z88.0 Allergy status to penicillin; Z90.5 Acquired absence of kidney; Z90.6 Acquired absence of other parts of urinary tract; Z95.0 Presence of cardiac pacemaker; Z94.0 Kidney transplant status
CPT/HCPCS: J1100; J1956; J2370; J2405; J2704